=== PATIENT | female | born 1970 | race Caucasian/White ===

== ENCOUNTER 2016-09-14 21:27 | Emergency (ER) | payer BC ==
[~2016-09-14] VITALS: Ht 167.6 cm; Wt 90.7 kg
[~2016-09-14 21:27] MED LIST: ALBU17AE3 IH; ALBU8.5H4 IH; BACL20TA PO; BENZ100C8 PO; BUDE10.2 IH; CODE118S2 PO; CYCL10TA9 PO; DOXY100C2 PO; DULO30CA48 PO; DULO60CA58 PO; DULOXETINE HCL; FLUT1DIS28 IH; GUAI118L76 PO; HYDR25CA5 PO; MELO-195 PO; MELO15TA14 PO; METH4TAB PO; MNTL10T PO; ONDA-42 SL; ONDAN4ODT PO; PRD20T PO; RT-ALBUINH IH; SULF1TAB38 PO; TOPI100T PO; TOPI100T11 PO; TRAM50TA2 PO; TRM50T PO
[2016-09-14] MEDS ORDERED: GABA-486 PO (21:49)
[2016-09-14] MEDS ORDERED: NORT10CA PO (21:49)
[2016-09-14] MEDS ORDERED: MUPI15CR TP (22:07)
[2016-09-14] MEDS ORDERED: SULF1TAB35 PO (22:07)
--- NOTE | 2016-09-14 22:07 | ED Integumentary General ---
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 Pt reports L breast was tender to touch earlier today but pt did not notice drainage or wound at that time. History of Present Illness Time seen by provider: 22:04 Initial Comments Painful swelling left breast for the past several hours. It is been draining yellow fluid tonight. It is tender to touch. She denies fevers. Allergies and Home Medications Allergies Coded Allergies: morphine (Verified Allergy, Mild, 02/25/15) Home Medications Gabapentin 100 Mg Capsule, Unknown Dose PO, (Reported) Meloxicam 15 Mg Tablet, 15 MG PO DAILY, (Reported) Nortriptyline HCl 10 Mg Capsule, Unknown Dose PO, (Reported) Constitutional: No fever EENTM: no symptoms reported Respiratory: no symptoms reported Cardiovascular: no symptoms reported Skin: see HPI All Other Systems Reviewed Negative Unless Noted: Yes Past Ssttvxp-Jlypad-Atzqyw Hx Patient Social History Alcohol Use: Denies Use Recreational Drug Use: No Smoking Status: Never a Smoker Former Smoker/When Quit: Apr 20, 1987 Recent Foreign Travel: No Contact w/Someone Who Travel: No Recent Infectious Disease Expo: No Recent Hopitalizations: No Immunizations Up To Date Tetanus Booster (TDap): Unknown Seasonal Allergies Seasonal Allergies: No Surgeries HX Surgeries: Yes (RIGHT LEG ORTHO SURGERY CHILD) Surgeries: Gallbladder, Hysterectomy, Orthopedic Respiratory Hx Respiratory Disorders: Yes Respiratory Disorders: Asthma Cardiovascular Hx Cardiac Disorders: Yes ("PULLED HEART MUSCLE" PER PT ) Neurological Hx Neurological Disorders: Yes (PSEUDOSEIZURES) Reproductive System Hx Reproductive Disorders: No 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, 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 Genitourinary Hx Genitourinary Disorders: No Gastrointestinal Hx Gastrointestinal Disorders: No Musculoskeletal Hx Musculoskeletal Disorders: Yes (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) Musculoskeletal Disorders: Fibromyalgia Endocrine Hx Endocrine Disorders: No (hypoglycemia) HEENT HX ENT Disorders: No Cancer Hx Cancer: No Psychosocial Hx Psychiatric Problems: Yes Behavioral Health Disorders: Anxiety Integumentary HX Skin/Integumentary Disorder: No Blood Transfusions Hx Blood Disorders: No Reviewed Nursing Assessment Reviewed/Agree w Nursing PMH: Yes Family Medical History Significant Family History: No Pertinent Family Hx Family Medial History: Alcoholism 19 FATHER Asthma G8 BROTHER Myocardial infarction (MATERNAL GRANDFATHER [place]) Physical Exam Vital Signs Vital Sign - Last 12Hours 09/14/16 21:36 Temp 96.1 Pulse 98 Resp 18 B/P (MAP) 128/84 Pulse Ox 95 O2 Delivery Room Air Capillary Refill : Less Than 3 Seconds General Appearance: WD/WN, no apparent distress Neck: supple Cardiovascular: regular rate, rhythm Respiratory: normal breath sounds Gastrointestinal: soft Extremities: normal inspection Neurologic/Psychiatric: alert, normal mood/affect Skin: other (tender red sore dollar size area of induration on her left breast. It is draining yellow pus. There is no fluctuance.) Progress/Results/Core Measures Results/Orders Vital Signs/I&O Vital Sign - Last 12Hours 09/14/16 21:36 Temp 96.1 Pulse 98 Resp 18 B/P (MAP) 128/84 Pulse Ox 95 O2 Delivery Room Air Blood Pressure Mean: 99 Departure Impression Impression: Primary Impression: Cellulitis of left breast Disposition: 01 HOME, SELF-CARE Condition: Stable Departure-Patient Inst. Decision time for Depature: 22:06 Referrals: SHANE ALLEN DO (PCP/Family) Primary Care Physician Patient Instructions: Cellulitis (Skin Infection), Adult (DC) Scripts Mupirocin Calcium (Bactroban) 15 Gm Cream..g. 15 GM TP BID, #1 TUBE Prov: NATE MEJÍA MD 09/14/16 Sulfamethoxazole/Trimethoprim (Bactrim Ds Tablet) 1 Each Tablet 1 EACH PO BID, #20 TAB Prov: NATE MEJÍA MD 09/14/16 NATE MEJÍA MD September 14, 2016 22:07
[2016-09-14 22:15] VITALS: BP 128/84
[2016-09-14] MEDS ORDERED: TRIM/SULFAMETH 160/800 (SEPTRA DS) TAB PO ONE (22:15)
== END 2016-09-14 22:15 | disposition home or self-care (01) ==
LOC: EDUNIT# 21:27 → ER 21:30
DX: N61.0 Mastitis without abscess (principal)
CPT/HCPCS: 99281

== ENCOUNTER 2017-03-03 05:41 | Outpatient (CLI) | payer BC ==
[~2017-03-03] VITALS: Ht 167.6 cm; Wt 90.7 kg
[~2017-03-03 05:41] MED LIST changes: +GABA-486 PO; +MUPI15CR TP; +NORT10CA PO; +SULF1TAB35 PO
[2017-03-03] MEDS ORDERED: MELO15TA39 PO (14:01)
[2017-03-03] MEDS ORDERED: CHOL10007 PO (14:01)
[2017-03-04] MEDS ORDERED: PANT40TA2 PO (14:01)
== END 2017-03-03 14:05 ==
LOC: PREOP 05:41
PROVIDERS: ATTEND Surgery
DX: Z01.818 Encounter for other preprocedural examination (principal); R13.10 Dysphagia, unspecified

== ENCOUNTER 2017-03-04 11:35 | Day surgery (SDC) | payer BC ==
[~2017-03-04 11:35] MED LIST changes: +CHOL10007 PO; +MELO15TA39 PO
[2017-03-04 11:40] VITALS: BP 138/88
[2017-03-04] MEDS ORDERED: HURRICAINE EXT TUBE (BENZOCAINE) XX PRN (11:45)
[2017-03-04] MEDS ORDERED: NS IV 500 ML 500 ML IV PRN (11:45)
--- NOTE | 2017-03-04 12:05 | Progress Note-Pre Operative ---
Pre-Operative Progress Note H&P Reviewed The H&P was reviewed, patient examined and no changes noted. Date Seen by Provider: Mar 04, 2017 Time Seen by Provider: 12:00 Date H&P Reviewed: Mar 04, 2017 Time H&P Reviewed: 12:00 Pre-Operative Diagnosis: GERD, dysphagia TC PEREZ MD Mar 04, 2017 12:05 pm
--- NOTE | 2017-03-04 12:05 | Conscious Sedation/ASA ---
Conscious Sedation Pre-Proced Time Reviewed: 12:00 ASA Class: 2 Airway Mallampati Classification: ([place] appropriate class) I. II. III, IV Lungs Heart ASA score ASA 1: a normal healthy patient ASA 2: a patient with a mild systemic disease (mid diabetes, controlled hypertension, obesity ASA 3: a patient with a severe systemic disease that limits activity (angina , COPD, prior Myocardial infarction) ASA 4: a patient with an incapacitating disease that is a constant threat to life (CHF, renal failure) ASA 5: a moribund patient not expected to survive 24 hrs. (ruptured aneurysm) ASA 6: a declared brain patient whose organs are being harvested. For emergent operations, add the letter E after the classification Grade 2 Sedation Plan: Analgesia, Amnesia, Plan communicated to team members, Discussed options with patient/fam, Discussed risks with patient/fam Note The patient is an appropriate candidate to undergo the planned procedure, sedation, and anesthesia. The patient immediately re-assessed prior to indication. TC PEREZ MD Mar 04, 2017 12:05 pm
[2017-03-04] MEDS ORDERED: ONDANSETRON 4 MG/2 ML (SDV) Z0FRAN IV PRN (12:15)
[2017-03-04] MEDS ORDERED: ACETAMINOPHEN 325 MG TABLET/CAPLET (TYLENOL) PO PRN (12:15)
[2017-03-04] MEDS ORDERED: HYDROcodone/APAP 5 MG/325 MG (LORTAB) TAB PO PRN (12:15)
[2017-03-04] MEDS ORDERED: fentaNYL INJECTION 100 MCG/2 ML AMP IVP PRN (12:15)
--- OUTSIDE RECORDS SUMMARY | 2017-03-04 12:32 | XMS REPORT | Continuity of Care Document ---
Author Author [employer] Organization [facility] Address Unknown Phone Unavailable Care Team Providers Care Crown And Bridge Technician Name Role Phone [employer] Unavailable Unavailable Problems Medications Allergies, Adverse Reactions, Alerts Substance Category Reaction Severity Reaction type Status Date Reported Comments Source morphine drug allergy rash, hives, hallucinations Allergy Active [facility], [place]. Immunizations Results Vital Signs Encounters Location Location Details Encounter Type Encounter Number Reason For Visit Attending Provider ADM Date DC Date Status Source [facility] [id number] Emergency [id number] SVITLANA SHARMA 01/09/201301/09 Active [facility], [place]. Procedures Plan of Care Social History Assessment and Plan Family History Value Date Source Advance Directives Order Name Results Value Date Source
--- OUTSIDE RECORDS SUMMARY | 2017-03-04 12:34 | XMS REPORT | Clinical Summary ---
Author Author [facility] Organization [facility] Address Unknown Phone Unavailable Care Team Providers Care Council Member Name Role Phone PCP Unavailable Source Comments Some departments are not documenting in the electronic medical record. If you do not see the information that you expected, contact Release of Information in the Health Information Management department at [phone] for further assistance in locating additional records.[facility] Allergies Active Allergy Reactions Severity Noted Date Comments Morphine ITCHING, HALLUCINATIONS High 05/16/2015 Current Medications Prescription Sig. Disp. Refills Start End Date Status Date baclofen (LIORESAL) 20 mg Take 20 mg by mouth at Active tablet bedtime daily. topiramate (TOPAMAX) 100 Take 100 mg by mouth. Active mg tablet Half tablet in the AM & 1 tab in the PM sumatriptan (IMITREX) 100 Take 100 mg by mouth as Active mg tablet Needed for Migraine symptoms. IBUPROFEN/DIPHENHYDRAMINE Take 4 Tabs by mouth at Active CIT (IBUPROFEN PM PO) bedtime daily. 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 Social History Tobacco Use Types Packs/Day Years Used Date Former Smoker Cigarettes Alcohol Use Drinks/Week oz/Week Comments No Sex Assigned at Date Recorded Not on file Last Filed Vital Signs Vital Sign Reading Time Taken Blood Pressure 119/84 05/21/2015 12:55 PM AD TRAFFICKER Pulse 78 05/21/2015 12:55 PM AD TRAFFICKER Temperature - - Respiratory Rate - - Oxygen Saturation - - Inhaled Oxygen - - Concentration Weight 94.3 kg (208 lb) 05/21/2015 12:55 PM AD TRAFFICKER Height 167.6 cm (5' 6") 05/21/2015 12:55 PM AD TRAFFICKER Body Mass Index 33.57 05/21/2015 12:55 PM AD TRAFFICKER Plan of Treatment Health Maintenance Due Date Last Done Comments PHYSICAL (COMPREHENSIVE) 07/02/1979 EXAM PERTUSSIS VACCINE 07/02/1983 TETANUS VACCINE 1989 CERVICAL CANCER SCREENING 2002 BREAST CANCER SCREENING 2012 INFLUENZA VACCINE 11/18/2016 Results Not on filefrom Last 3 Months
[2017-03-04] MEDS ORDERED: MIDAZOLAM 2 MG/2 ML (VERSED) VIAL ONE ×3 (13:02→13:03)
[2017-03-04] MEDS ORDERED: fentaNYL INJECTION 100 MCG/2 ML AMP ONE (13:03)
[2017-03-04] MEDS ORDERED: HURRICAINE EXT TUBE (BENZOCAINE) ONE (13:03)
[2017-03-04] MEDS ORDERED: LIDOCAINE JELLY 2% (XYLOCAINE) 5 ML TUBE ONE (13:03)
[2017-03-04] MEDS: fentaNYL INJECTION 100 MCG/2 ML AMP IVP PRN ×2 (13:20→13:33)
[2017-03-04] MEDS: MIDAZOLAM 2 MG/2 ML (VERSED) VIAL IVP PRN ×3 (13:25→13:35)
[2017-03-04] MEDS ORDERED: LIDOCAINE JELLY 2% (XYLOCAINE) 5 ML TUBE TOP ONE (14:00)
--- NOTE | 2017-03-04 14:00 | Progress Note-Post Operative ---
Post-Operative Progess Note Surgeon (s)/Sausage Wrapper (s) Surgeon TC PEREZ MD Sausage Wrapper: none Pre-Operative Diagnosis GERD, dysphagia Post-Operative Diagnosis reflux esophagitis(class C), mild distal esophageal stricture, no HH, mild-mod gastritis. Procedure & Operative Findings Date of Procedure 03/04/17 Procedure Performed/Findings EGD with bx and dilatation. Anesthesia Type CS Estimated Blood Loss Estimated blood loss (mL): minimal Specimens/Packing Specimens Removed GE jxn, antrum TC PEREZ MD Mar 04, 2017 2:00 pm
[2017-03-04] MEDS ORDERED: PANT40TA2 PO (14:01)
--- NOTE | 2017-03-04 14:02 | Discharge Inst-Surgical ---
D/C Lap Instructions-KIDO New, Converted, or Re-Newed RX: RX on Chart Follow Up Appt in 6 weeks Activity as tolerated High Fiber Diet 25g or more per day Avoid Alcohol, Caffeine, Spicy [place] and Acid foods. Drink 64 fluid oz or more of fluids per day. Symptoms to Report: Fever over 101 degree F, Nausea/Vomiting If any problems/questions: Contact your physician or go to Emergency Room TC PEREZ MD Mar 04, 2017 2:02 pm
[2017-03-04 14:05] VITALS: BP 141/88
[2017-03-04 14:45] VITALS: BP 127/85
[2017-03-04 14:54] VITALS: BP 127/85
--- NOTE | 2017-03-04 17:57 | OPERATIVE REPORT ---
DATE OF SERVICE: 03/04/2017 ATTENDING PRIMARY CARE PHYSICIAN: Annie Mott DO PREOPERATIVE DIAGNOSIS: Dysphagia, gastroesophageal reflux disease. POSTOPERATIVE DIAGNOSIS: Severe reflux esophagitis class C with mild distal esophageal stricture. No significant sized hiatal hernia, mild gastritis. PROCEDURE: EGD with biopsy and dilatation. SURGEON: Zeny Venegas MD ANESTHESIA: Conscious sedation. ESTIMATED BLOOD LOSS: Minimal. FINDINGS: Severe reflux esophagitis class C, mild distal esophageal stricture. No significant hiatal hernia, mild to moderate gastritis with no formal ulcers, polyps or any neoplasms. Pylorus and duodenum appeared normal with no distal obstructions. DISPOSITION: The patient tolerated the procedure well. INDICATIONS: The patient is a 46-year-old female, who has had a longstanding history of gastroesophageal reflux disease; however, this has progressed to dysphagia including substernal and chest tightness as well as regurgitation. She has been taking over the counter antacids. However, her symptoms have worsened. She does take Meloxicam for fibromyalgia. DESCRIPTION OF PROCEDURE: The patient was brought to the endoscopy suite, laid in the left lateral decubitus position. After adequate IV pain and sedating medications and conscious sedation anesthesia, the mouthpiece was applied. Endoscope was placed in the mouth, visualizing the pharynx and hypopharyngeal region. Vocal cords, epiglottis and vallecula identified and appeared to be normal. The endoscope was then gently intubated in the esophageal opening, esophagus insufflated. The endoscope was then advanced to the first, second and third portions of the esophagus. At the level of the GE junction, a reflux esophagitis which was severe, was noted. This was [place] class C. Superficial erosions were also identified. A biopsy was taken with forceps with visualization of good hemostasis. There was also a slight narrowing consistent with an early stricture. The endoscope was advanced through the stomach and the endoscope retroflexed. There was no significant sized hiatal hernia identified. There was a mild to moderate gastritis noted. There were no formal ulcers, polyps or any neoplasms identified. A biopsy was taken of the stomach antrum with forceps with visualization of good hemostasis. The endoscope was then advanced to the pylorus into the first and second portions of the duodenum, which appeared normal. There were no distal obstructions. The endoscope was slowly withdrawn. It was then decided to proceed with an esophageal dilatation. A CRE fixed guidewire balloon was then placed into the stomach and pulled back to the area of the stricture. The balloon was then insufflated at 3 atmosphere of pressure with no resistance. We then proceeded to 4.5 atmospheres of pressure or 19 mm in circumference with mild resistance. We then proceeded to 6 atmospheres of pressure or 20 mm in circumference with mild to moderate resistance. The patient did show discomfort also consistent with a successful dilatation of the stricture. This was left in place for approximately 60 seconds. The balloon was then desufflated and removed. No mucosal tears or any bleeding identified. The endoscope was then slowly withdrawn taking a second look and suctioning of residual air with no additional findings. The patient tolerated the procedure well. We will have her continue with the necessary lifestyle changes as well as medical management including small and more frequent meals, avoidance of eating at night as well as head elevation while laying supine. She also needs to avoid caffeinated beverages, spicy, greasy and acidic foods. Proper diet and exercise as well as weight loss are also recommended. We will also await the biopsy results for potential H. pylori as well as Arias's esophagus. We will start her on Protonix 40 mg daily. Job ID: [id number] DocumentID: [id number] Dictated Date: 03/04/2017 13:57:07 Entry Specialist Date: 03/04/2017 17:56:49 Dictated By: MD MARY GENAO
== END 2017-03-04 15:02 | disposition home or self-care (01) ==
LOC: ENDO 11:35
PROVIDERS: ATTEND Surgery
DX: K21.0 Gastro-esophageal reflux disease with esophagitis (principal); K22.2 Esophageal obstruction; K29.60 Other gastritis without bleeding; G40.909 Epilepsy, unspecified, not intractable, without status epilepticus; M79.7 Fibromyalgia; Z79.899 Other long term (current) drug therapy

== ENCOUNTER 2017-11-29 23:25 | Emergency (ER) | payer BC ==
[~2017-11-29] VITALS: Ht 167.6 cm; Wt 90.7 kg
[~2017-11-29 23:25] MED LIST changes: +CODE118S4 PO; +PANT40TA2 PO
--- OUTSIDE RECORDS SUMMARY | 2017-11-29 23:32 | XMS REPORT | Clinical Summary ---
Author Author [facility] Organization [facility] Address Unknown Phone Unavailable Care Team Providers Care Rotoprinter Name Role Phone Catalina Odom MD Unavailable Annie Mott MD PCP Arnaud Coronel MD Unavailable Source Comments Some departments are not documenting in the electronic medical record. If you do not see the information that you expected, contact Release of Information in the Health Information Management department at [phone] for further assistance in locating additional records.[facility] Allergies Active Allergy Reactions Severity Noted Date Comments Morphine ITCHING, HALLUCINATIONS High 05/16/2015 Current Medications Prescription Sig. Disp. Refills Start End Date Status Date gabapentin (NEURONTIN) TAKE 1 CAPSULES BY MOUTH 1 01/01/20 Active 100 mg capsule AT BEDTIME 17 meloxicam (MOBIC) 15 mg TAKE 1 TABLET BY MOUTH 3 03/07/20 Active tablet EVERY DAY 17 nortriptyline (PAMELOR) TAKE ONE CAPSULE BY MOUTH 1 02/07/20 Active 10 mg capsule DAILY AT BEDTIME [address] Take 40 mg by mouth 03/04/20 Active (PROTONIX) 40 mg tablet daily. 17 Cholecalciferol (Vitamin Take by mouth daily. Active D3) (VITAMIN D) 1,000 unit cap IBUPROFEN PO Take by mouth as Needed. 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 Family History Medical History Relation Name Comments Heart Attack Maternal Grandfather Cancer Maternal ovarian Grandmother Unknown to Patient Mother Dementia Neg Hx Migraines Neg Hx Seizures Neg Hx Stroke Neg Hx Relation Name Status Comments Maternal Grandfather Maternal Grandmother Mother Social History Tobacco Use Types Packs/Day Years Used Date Former Smoker Cigarettes Smokeless Tobacco: Never Used Alcohol Use Drinks/Week oz/Week Comments No Sex Assigned at Date Recorded Not on file Last Filed Vital Signs Vital Sign Reading Time Taken Blood Pressure 139/81 04/08/2017 12:10 PM CRYSTALIZER TENDER Pulse 95 04/08/2017 12:10 PM CRYSTALIZER TENDER Temperature - - Respiratory Rate - - Oxygen Saturation 100% 04/08/2017 12:10 PM CRYSTALIZER TENDER Inhaled Oxygen - - Concentration Weight 96.3 kg (212 lb 3.2 oz) 04/08/2017 12:10 PM CRYSTALIZER TENDER Height 167.6 cm (5' 6") 04/08/2017 12:10 PM CRYSTALIZER TENDER Body Mass Index 34.25 04/08/2017 12:10 PM CRYSTALIZER TENDER Plan of Treatment Health Maintenance Due Date Last Done Comments PHYSICAL (COMPREHENSIVE) 07/02/1979 EXAM PERTUSSIS VACCINE 07/02/1983 HIV SCREENING 07/02/1987 TETANUS VACCINE 1989 CERVICAL CANCER SCREENING 2002 BREAST CANCER SCREENING 2012 INFLUENZA VACCINE 01/18/2018 Results Not on filefrom Last 3 Months
--- OUTSIDE RECORDS SUMMARY | 2017-11-29 23:34 | XMS REPORT | Continuity of Care Document ---
Author Author [facility] Organization [facility] Address Unknown Phone Unavailable Allergies Active Description Code Type Severity Reaction Onset Reported/Identified Relationship to Patient Clinical Status Yes morphine [id number] Drug Allergy Mild N/A 02/25/2015 Medications There is no data. Problems Date Dx Coded Attending Type Code Diagnosis Diagnosed By 07/21/2010 Ot 682.4 CELLULITIS OF HAND 07/21/2010 Ot 914.1 ABRASION HAND -INFECTED 07/21/2010 Ot E000.8 OTHER EXTERNAL CAUSE STATUS 07/21/2010 Ot E849.0 ACCIDENT IN HOME 07/21/2010 Ot E920.8 ACC-CUTTING INSTRUM NEC 07/21/2010 Ot V06.1 DIPHTHERIA- TETANUS-PERTUSSIS, COMBINED [ 10/25/2010 Ot 493.90 ASTHMA, UNSPECIFIED 10/25/2010 Ot 786.05 SHORTNESS OF BREATH 05/25/2011 Ot 465.9 ACUTE URI NOS 05/25/2011 Ot 490 BRONCHITIS NOS 05/25/2011 Ot 786.2 COUGH 06/02/2012 Ot 493.92 ASTHMA, UNSPECIFIED, W (ACUTE) EXACERBAT 06/02/2012 Ot 786.05 SHORTNESS OF BREATH 06/03/2012 Ot 300.00 ANXIETY STATE NOS 06/03/2012 Ot 780.96 GENERALIZED PAIN 06/03/2012 Ot 784.0 HEADACHE 07/28/2012 Ot 845.10 SPRAIN OF FOOT NOS 07/28/2012 Ot 959.7 LOWER LEG INJURY NOS 07/28/2012 Ot E000.8 OTHER EXTERNAL CAUSE STATUS 07/28/2012 Ot E849.0 ACCIDENT IN HOME 07/28/2012 Ot E880.9 FALL ON STAIR/STEP NEC 09/13/2012 NATE MEJÍA MD Ot 519.11 ACUTE BRONCHOSPASM 09/13/2012 NATE MEJÍA MD Ot 786.09 RESPIRATORY ABNORM NEC 08/16/2013 PASTOR GONZALES MD Ot 490 BRONCHITIS NOS 08/16/2013 PASTOR GONZALES MD Ot 786.05 SHORTNESS OF BREATH 08/16/2013 PASTOR GONZALES MD Ot 786.59 CHEST PAIN NEC 02/07/2014 PASTOR GONZALES MD Ot 300.00 ANXIETY STATE NOS 02/07/2014 PASTOR GONZALES MD Ot 493.92 ASTHMA, UNSPECIFIED, W (ACUTE) EXACERBAT 02/07/2014 PASTOR GONZALES MD Ot 786.50 CHEST PAIN NOS 02/07/2014 PASTOR GONZALES MD Ot 786.52 PAINFUL RESPIRATION 10/07/2014 NIURKA ALLEN DOQUELINE S Ot 300.01 PANIC DISORDER WITHOUT AGORAPHOBIA 10/07/2014 NIURKA ALLEN DOQUELINE S Ot 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 10/07/2014 TIFFANY TOLENTINO SHANE S Ot 780.97 ALTERED MENTAL STATUS 10/07/2014 NIURKA ALLEN DOQUELINE S Ot 784.0 HEADACHE 10/07/2014 NIURKA ALLEN DOQUELINE S Ot 786.52 PAINFUL RESPIRATION 02/26/2015 NIURKA ALLEN DOQUELINE S Ot F41.9 ANXIETY DISORDER, UNSPECIFIED 02/26/2015 TIFFANY TOLENTINO, SHANE S Ot 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 AND CONVERSION DISORDER, UN 02/26/2015 MITA ALLEN DOLINE S Ot G43.909 MIGRAINE, UNSP, NOT INTRACTABLE, WITHOUT 02/26/2015 NIURKA ALLEN DOQUELINE S Ot G44.209 TENSION-TYPE HEADACHE, UNSPECIFIED, NOT 02/26/2015 MITA ALLEN DOLINE S Ot R56.9 UNSPECIFIED CONVULSIONS 03/25/2015 GAVIN BISWAS DO Ot R51 HEADACHE 03/25/2015 GAVIN BISWAS DO Ot Z91.14 PATIENT'S OTHER NONCOMPLIANCE WITH MEDIC 03/28/2015 MITA ALLEN DOLINE S Ot R41.3 03/28/2015 NIURKA ALLEN DOQUELINE S Ot R52 03/28/2015 MITA ALLEN DOLINE S Ot R55 04/05/2015 MITA ALLEN DOLINE S Ot R41.3 04/05/2015 NIURKA ALLEN DOQUELINE S Ot R51 04/05/2015 ORENDER DO, SHANE S Ot R55 04/24/2015 ORENDER DO, SHANE S Ot R41.3 04/24/2015 ORENDER DO, SHANE S Ot R52 04/24/2015 ORENDER DO, SHANE S Ot R55 04/24/2015 ORENDER DO, SHANE S Ot R41.3 04/24/2015 ORENDER DO, SHANE S Ot R51 04/24/2015 ORENDER DO, SHANE S Ot R55 08/08/2015 ORENDER DO, SHANE S Ot F19.90 OTHER PSYCHOACTIVE SUBSTANCE USE, UNSPEC 08/08/2015 ORENDER DO, SHANE S Ot F19.90 OTHER PSYCHOACTIVE SUBSTANCE USE, UNSPEC 08/22/2015 ORENDER DO, SHANE S Ot F19.90 OTHER PSYCHOACTIVE SUBSTANCE USE, UNSPEC 09/11/2015 ORENDER DO, SHANE S Ot R41.3 OTHER AMNESIA 09/11/2015 ORENDER DO, SHANE S Ot R52 PAIN, UNSPECIFIED 09/11/2015 ORENDER DO, SHANE S Ot R55 SYNCOPE AND COLLAPSE 09/11/2015 ORENDER DO, SHANE S Ot R41.3 OTHER AMNESIA 09/11/2015 ORENDER DO, SHANE S Ot R51 HEADACHE 09/11/2015 ORENDER DO, SHANE S Ot R55 SYNCOPE AND COLLAPSE 09/11/2015 ORENDER DO, SHANE S Ot F19.90 OTHER PSYCHOACTIVE SUBSTANCE USE, UNSPEC 09/11/2015 TRINITY VALLECILLO MD Ot K22.9 DISEASE OF ESOPHAGUS, UNSPECIFIED 09/11/2015 TRINITY VALLECILLO MD Ot K76.0 FATTY (CHANGE OF) LIVER, NOT ELSEWHERE C 09/11/2015 TRINITY VALLECILLO MD Ot R10.31 RIGHT LOWER QUADRANT PAIN 09/11/2015 TRINITY VALLECILLO MD Ot R11.2 NAUSEA WITH VOMITING, UNSPECIFIED 09/12/2015 TRINITY VALLECILLO MD Ot K22.9 DISEASE OF ESOPHAGUS, UNSPECIFIED 09/12/2015 TRINITY VALLECILLO MD Ot K76.0 FATTY (CHANGE OF) LIVER, NOT ELSEWHERE C 09/12/2015 TRINITY VALLECILLO MD Ot R10.31 RIGHT LOWER QUADRANT PAIN 09/12/2015 TRINITY VALLECILLO MD Ot R11.2 NAUSEA WITH VOMITING, UNSPECIFIED 10/10/2015 Ot 729.5 PAIN IN LIMB 10/11/2015 ORENDER DO, SHANE S Ot R41.3 OTHER AMNESIA 10/11/2015 ORENDER DO, SHANE S Ot R52 PAIN, UNSPECIFIED 10/11/2015 ORENDER DO, SHANE S Ot R55 SYNCOPE AND COLLAPSE 10/11/2015 ORENDER DO, SHANE S Ot R41.3 OTHER AMNESIA 10/11/2015 ORENDER DO, SHANE S Ot R51 HEADACHE 10/11/2015 ORENDER DO, SHANE S Ot R55 SYNCOPE AND COLLAPSE 10/11/2015 ORENDER DO, SHANE S Ot F19.90 OTHER PSYCHOACTIVE SUBSTANCE USE, UNSPEC 11/04/2015 ORENDER DO, SHANE S Ot R41.3 OTHER AMNESIA 11/04/2015 ORENDER DO, SHANE S Ot R52 PAIN, UNSPECIFIED 11/04/2015 ORENDER DO, SHANE S Ot R55 SYNCOPE AND COLLAPSE 11/04/2015 ORENDER DO, SHANE S Ot R41.3 OTHER AMNESIA 11/04/2015 ORENDER DO, SHANE S Ot R51 HEADACHE 11/04/2015 ORENDER DO, SHANE S Ot R55 SYNCOPE AND COLLAPSE 11/04/2015 ORENDER DO, SHANE S Ot F19.90 OTHER PSYCHOACTIVE SUBSTANCE USE, UNSPEC 04/16/2016 TRINITY VALLECILLO MD Ot F41.9 ANXIETY DISORDER, UNSPECIFIED 04/16/2016 TRINITY VALLECILLO MD Ot 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 04/16/2016 TRINITY VALLECILLO MD Ot J20.9 ACUTE BRONCHITIS, UNSPECIFIED 04/16/2016 TRINITY VALLECILLO MD Ot R05 COUGH 04/17/2016 TRINITY VALLECILLO MD Ot F41.9 ANXIETY DISORDER, UNSPECIFIED 04/17/2016 TRINITY VALLECILLO MD Ot 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 04/17/2016 TRINITY VALLECILLO MD Ot J20.9 ACUTE BRONCHITIS, UNSPECIFIED 04/17/2016 TRINITY VALLECILLO MD Ot R05 COUGH 04/19/2016 TRINITY VALLECILLO MD Ot F41.9 ANXIETY DISORDER, UNSPECIFIED 04/19/2016 TRINITY VALLECILLO MD Ot 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 04/19/2016 TRINITY VALLECILLO MD Ot J20.9 ACUTE BRONCHITIS, UNSPECIFIED 04/19/2016 TRINITY VALLECILLO MD Ot R05 COUGH 04/22/2016 TRINITY VALLECILLO MD Ot F41.9 ANXIETY DISORDER, UNSPECIFIED 04/22/2016 TRINITY VALLECILLO MD Ot 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 04/22/2016 TRINITY VALLECILLO MD Ot J20.9 ACUTE BRONCHITIS, UNSPECIFIED 04/22/2016 TRINITY VALLECILLO MD Ot R05 COUGH 09/14/2016 ORENDER DO, SHANE S Ot R41.3 OTHER AMNESIA 09/14/2016 ORENDER DO, SHANE S Ot R52 PAIN, UNSPECIFIED 09/14/2016 ORENDER DO, SHANE S Ot R55 SYNCOPE AND COLLAPSE 09/14/2016 ORENDER DO, SHANE S Ot R41.3 OTHER AMNESIA 09/14/2016 ORENDER DO, SHANE S Ot R51 HEADACHE 09/14/2016 ORENDER DO, SHANE S Ot R55 SYNCOPE AND COLLAPSE 09/14/2016 ORENDER DO, SHANE S Ot F19.90 OTHER PSYCHOACTIVE SUBSTANCE USE, UNSPEC 09/14/2016 NATE MEJÍA MD Ot N61.0 MASTITIS WITHOUT ABSCESS 09/14/2016 NATE MEJÍA MD Ot S20.162A INSECT BITE (NONVENOMOUS) OF BREAST, LEF 03/04/2017 TC PEREZ MD Ot G40.909 EPILEPSY, UNSP, NOT INTRACTABLE, WITHOUT 03/04/2017 TC PEREZ MD Ot K21.0 GASTRO-ESOPHAGEAL REFLUX DISEASE WITH ES 03/04/2017 TC PEREZ MD Ot K22.2 ESOPHAGEAL OBSTRUCTION 03/04/2017 TC PEREZ MD Ot K29.60 OTHER GASTRITIS WITHOUT BLEEDING 03/04/2017 TC PEREZ MD Ot M79.7 FIBROMYALGIA 03/04/2017 TC PEREZ MD, Ot Z79.899 OTHER LONG-TERM (CURRENT) DRUG THERAPY 03/05/2017 TC PEREZ MD, Ot G40.909 EPILEPSY, UNSP, NOT INTRACTABLE, WITHOUT 03/05/2017 TC PEREZ MD Ot K21.0 GASTRO-ESOPHAGEAL REFLUX DISEASE WITH ES 03/05/2017 TC PEREZ MD, Ot K22.2 ESOPHAGEAL OBSTRUCTION 03/05/2017 TC PEREZ MD, Ot K29.60 OTHER GASTRITIS WITHOUT BLEEDING 03/05/2017 TC PEREZ MD, Ot M79.7 FIBROMYALGIA 03/05/2017 TC PEREZ MD, Ot Z79.899 OTHER LONG-TERM (CURRENT) DRUG THERAPY 03/09/2017 TC PEREZ MD, Ot R13.10 DYSPHAGIA, UNSPECIFIED 03/09/2017 TC PEREZ MD, Ot Z01.818 ENCOUNTER FOR OTHER PREPROCEDURAL EXAMIN 03/10/2017 TC PEREZ MD, Ot G40.909 EPILEPSY, UNSP, NOT INTRACTABLE, WITHOUT 03/10/2017 TC PEREZ MD, Ot K21.0 GASTRO-ESOPHAGEAL REFLUX DISEASE WITH ES 03/10/2017 TC PEREZ MD, Ot K22.2 ESOPHAGEAL OBSTRUCTION 03/10/2017 TC PEREZ MD, Ot K29.60 OTHER GASTRITIS WITHOUT BLEEDING 03/10/2017 TC PEREZ MD Ot M79.7 FIBROMYALGIA 03/10/2017 TC PEREZ MD, Ot Z79.899 OTHER LONG-TERM (CURRENT) DRUG THERAPY 03/16/2017 SHANE ALLEN DO Ot G93.0 CEREBRAL CYSTS 03/18/2017 TC PEREZ MD Ot G40.909 EPILEPSY, UNSP, NOT INTRACTABLE, WITHOUT 03/18/2017 TC PEREZ MD Ot K21.0 GASTRO-ESOPHAGEAL REFLUX DISEASE WITH ES 03/18/2017 TC PEREZ MD, Ot K22.2 ESOPHAGEAL OBSTRUCTION 03/18/2017 TC PEREZ MD Ot K29.60 OTHER GASTRITIS WITHOUT BLEEDING 03/18/2017 TC PEREZ MD Ot M79.7 FIBROMYALGIA 03/18/2017 TC PEREZ MD, Ot Z79.899 OTHER LONG-TERM (CURRENT) DRUG THERAPY Procedures There is no data. Results Test Result Range Complete blood count (CBC) with automated white blood cell (WBC) differential - 04/16/16 11:09 Blood leukocytes automated count (number/volume) 9.3 10*3/uL 4.3-11.0 Blood erythrocytes automated count (number/volume) 4.65 10*6/uL 4.35-5.85 Venous blood hemoglobin measurement (mass/volume) 13.8 g/dL 11.5-16.0 Blood hematocrit (volume fraction) 40 % 35-52 Automated erythrocyte mean corpuscular volume 86 [foz_us] 80-99 Automated erythrocyte mean corpuscular hemoglobin (mass per erythrocyte) 30 pg 25-34 Automated erythrocyte mean corpuscular hemoglobin concentration measurement ( mass/volume) 34 g/dL 32-36 Automated erythrocyte distribution width ratio 12.8 % 10.0-14.5 Automated blood platelet count (count/volume) 328 10*3/uL 130-400 Automated blood platelet mean volume measurement 9.1 [foz_us] 7.4-10.4 Automated blood neutrophils/100 leukocytes 50 % 42-75 Automated blood lymphocytes/100 leukocytes 34 % 12-44 Blood monocytes/100 leukocytes 6 % 0-12 Automated blood eosinophils/100 leukocytes 9 % 0-10 Automated blood basophils/100 leukocytes 1 % 0-10 Blood neutrophils automated count (number/volume) 4.6 10*3 1.8-7.8 Blood lymphocytes automated count (number/volume) 3.2 10*3 1.0-4.0 Blood monocytes automated count (number/volume) 0.6 10*3 0.0-1.0 Automated eosinophil count 0.9 10*3/uL 0.0-0.3 Automated blood basophil count (count/volume) 0.1 10*3/uL 0.0-0.1 PT panel in platelet poor plasma by coagulation assay - 04/16/16 11:09 Prothrombin time (PT) in platelet poor plasma by coagulation assay 13.7 s 12.2-14.7 INR in platelet poor plasma or blood by coagulation assay 1.1 0.8-1.4 Activated partial thromboplastin time (aPTT) in platelet poor plasma bycoagulation assay - 04/16/16 11:09 Activated partial thromboplastin time (aPTT) in platelet poor plasma bycoagulation assay 35 s 24-35 Fibrin D-dimer FEU measurement in platelet poor plasma (mass/volume) - 11:09 Fibrin D-dimer FEU measurement in platelet poor plasma (mass/volume) 0.34 ug/mL 0.00-0.49 Comprehensive metabolic panel - 04/16/16 11:09 Serum or plasma sodium measurement (moles/volume) 135 mmol/L 135-145 Serum or plasma potassium measurement (moles/volume) 4.1 mmol/L 3.6-5.0 Serum or plasma chloride measurement (moles/volume) 107 mmol/L 98-107 Carbon dioxide 19 mmol/L 21-32 Serum or plasma anion gap determination (moles/volume) 9 mmol/L 5-14 Serum or plasma urea nitrogen measurement (mass/volume) 10 mg/dL 7-18 Serum or plasma creatinine measurement (mass/volume) 0.70 mg/dL 0.60-1.30 Serum or plasma urea nitrogen/creatinine mass ratio 14 NRG Serum or plasma creatinine measurement with calculation of estimated glomerular filtration rate > NRG Serum or plasma glucose measurement (mass/volume) 101 mg/dL 70-105 Serum or plasma calcium measurement (mass/volume) 8.6 mg/dL 8.5-10.1 Serum or plasma total bilirubin measurement (mass/volume) 0.4 mg/dL 0.1-1.0 Serum or plasma alkaline phosphatase measurement (enzymatic activity/volume) 86 U/L 40-136 Serum or plasma aspartate aminotransferase measurement (enzymatic activity/ volume) 20 U/L 5-34 Serum or plasma alanine aminotransferase measurement (enzymatic activity/volume ) 20 U/L 0-55 Serum or plasma protein measurement (mass/volume) 6.9 g/dL 6.4-8.2 Serum or plasma albumin measurement (mass/volume) 4.1 g/dL 3.2-4.5 Serum or plasma troponin i.cardiac measurement (mass/volume) - 04/16/16 11:09 Serum or plasma troponin i.cardiac measurement (mass/volume) < ng/ mL <0.30 Capillary blood glucose measurement by glucometer (mass/volume) - 04/16/16 11: 22 Capillary blood glucose measurement by glucometer (mass/volume) 78 mg/dL 70-110 Complete urinalysis with reflex to culture - 04/16/16 12:41 Urine color determination YELLOW NRG Urine clarity determination CLEAR NRG Urine pH measurement by test strip 6 5-9 Specific gravity of urine by test strip 1.015 1.016- 1.022 Urine protein assay by test strip, semi-quantitative NEGATIVE NEGATIVE Urine glucose detection by automated test strip 4+ NEGATIVE Erythrocytes detection in urine sediment by light microscopy 1+ NEGATIVE Urine ketones detection by automated test strip NEGATIVE NEGATIVE Urine nitrite detection by test strip NEGATIVE NEGATIVE Urine total bilirubin detection by test strip NEGATIVE NEGATIVE Urine urobilinogen measurement by automated test strip (mass/volume) NORMAL NORMAL Urine leukocyte esterase detection by dipstick NEGATIVE NEGATIVE Automated urine sediment erythrocyte count by microscopy (number/high power field) [HPF] NRG Automated urine sediment leukocyte count by microscopy (number/high power field ) NONE NRG Bacteria detection in urine sediment by light microscopy TRACE NRG Squamous epithelial cells detection in urine sediment by light microscopy >50 NRG Crystals detection in urine sediment by light microscopy NONE NRG Casts detection in urine sediment by light microscopy NONE NRG Mucus detection in urine sediment by light microscopy NEGATIVE NRG Complete urinalysis with reflex to culture NO NRG Encounters ACCT No. Visit Date/Time Discharge Status Pt. Type Provider Facility Loc./Unit Complaint [id number] 03/04/2017 11:35:00 03/04/2017 15:02:00 DIS Outpatient TC PEREZ MD [facility] ENDO DYSPHAGIA [id number] 03/03/2017 05:41:00 03/03/2017 14:05:00 DIS Outpatient TC PEREZ MD [facility] PREOP DYSPHAGIA [id number] 02/25/2017 10:06:00 02/25/2017 23:59:59 CLS Outpatient SHANE ALLEN DO [facility] RAD G93.0 [id number] 09/14/2016 21:30:00 09/14/2016 22:15:00 DIS Emergency NATE MEJÍA MD [facility] ER POSS SPIDER BITE [id number] 04/16/2016 09:55:00 04/16/2016 13:59:00 DIS Emergency TRINITY VALLECILLO MD [facility] ER COUGH/CHEST CONGESTION [id number] 09/11/2015 20:27:00 09/11/2015 23:56:00 DIS Emergency TRINITY VALLECILLO MD [facility] ER ABD PAIN [id number] 08/02/2015 17:06:00 08/02/2015 23:59:59 CLS Outpatient SHANE ALLEN DO S [facility] LAB TYLENOL OVERUSAGE [id number] 03/24/2015 22:20:00 03/25/2015 00:26:00 DIS Emergency GAVIN BISWAS DO [facility] ER POSSIBLE OVERDOSE [id number] 03/21/2015 15:31:00 03/21/2015 23:59:59 CLS Outpatient SHANE ALLEN DO S [facility] RAD CERVICALGIA [id number] 03/13/2015 16:08:00 03/13/2015 23:59:59 CLS Outpatient MITA ALLEN DOLINE S [facility] RAD CEPHALGIA, NECK PAIN WITH PARETHESIA [id number] 02/25/2015 13:41:00 02/26/2015 18:28:00 DIS Inpatient SHANE ALLEN DO S [facility] 4TH SEIZURE LIKE EPISODE [id number] 10/06/2014 16:27:00 10/07/2014 16:05:00 DIS Inpatient MITA ALLEN DOLINE S [facility] 4TH CONVERSION DISORDER, AMS [id number] 02/07/2014 13:15:00 02/07/2014 15:23:00 DIS Emergency PASTOR GONZALES MD [facility] ER CHEST PAIN [id number] 08/16/2013 00:23:00 08/16/2013 02:14:00 DIS Emergency PASTOR GONZALES MD [facility] ER SOB [id number] 09/13/2012 15:22:00 09/13/2012 16:12:00 DIS Emergency NAET MEJÍA MD [facility] ER [id number] 07/27/2012 23:14:00 Document Registration [id number] 06/03/2012 16:05:00 Document Registration [id number] 06/02/2012 21:46:00 Document Registration [id number] 10/15/2011 16:32:00 Document Registration [id number] 05/25/2011 14:30:00 Document Registration [id number] 10/25/2010 10:39:00 Document Registration [id number] 07/21/2010 03:28:00 Document Registration 06/201710/27/2017 14:37:01 10/27/2017 23:59:59 [facility] Shane Byers
[2017-11-29] MEDS ORDERED: RX-NEO/POLYB/HC OTIC (CORTISPORIN) SUSP 10 ML BTL OT STA (23:52)
[2017-11-30] MEDS ORDERED: BSS 15 ML IR ONE
[2017-11-30] MEDS ORDERED: TETRACAINE 0.5% OPHTH SOLN 4 ML BTL (SINGLE DOSE ONLY) OP ONE
--- NOTE | 2017-11-30 00:23 | ED General ---
General Chief Complaint: Ear Problems Stated Complaint: EAR PAIN IN BOTH EARS-STS POURED PEROXIDE IN EARS Nursing Triage Note: PT PRESENTS TO ER WITH COMPLAINT OF BILATERAL EAR PAIN AFTER POURING PEROXIDE IN BOTH EARS TO CLEAN THE WAX OUT. Nursing Sepsis Screen: No Definite Risk Source of Information: Patient Exam Limitations: No Limitations History of Present Illness Date Seen by Provider: Nov 30, 2017 Time Seen by Provider: 23:48 Initial Comments This 47-year-old woman presents to the emergency room with complaints of severe pain in the ears bilaterally, right greater than left. She was using hydrogen peroxide and Q-tips to clean wax out of her ears earlier this evening. The pain started shortly after. She is in distress due to the pain. She took ibuprofen 400 mg at home. She reports using hydrogen peroxide in the same manner in the past without any difficulty. Allergies and Home Medications Allergies Coded Allergies: morphine (Verified Allergy, Mild, 02/25/15) Home Medications Cholecalciferol (Vitamin D3) 1,000 Unit Capsule, 1,000 UNIT PO DAILY, (Reported) Gabapentin 100 Mg Capsule, 100 MG PO HS, (Reported) Meloxicam 15 Mg Tablet, 15 MG PO DAILY, (Reported) Nortriptyline HCl 10 Mg Capsule, 10 MG PO HS, (Reported) Pantoprazole Sodium 40 Mg Tablet.dr, 40 MG PO DAILY Prescribed by: TC PEREZ on 03/04/17 1401 Patient Home Medication List Home Medication List Reviewed: Yes Review of Systems Constitutional: no symptoms reported EENTM: see HPI Respiratory: no symptoms reported Cardiovascular: no symptoms reported Gastrointestinal: no symptoms reported Skin: no symptoms reported Psychiatric/Neurological: No Symptoms Reported Past Zqykjiq-Smwfav-Toequn Hx Patient Social History Alcohol Use: Denies Use Recreational Drug Use: No Smoking Status: Never a Smoker Recent Foreign Travel: No Contact w/Someone Who Travel: No Recent Infectious Disease Expo: No Recent Hopitalizations: No Immunizations Up To Date Tetanus Booster (TDap): Unknown Seasonal Allergies Seasonal Allergies: No Past Medical History Surgeries: Yes (RIGHT LEG ORTHO SURGERY CHILD, [facility]) Gallbladder, Hysterectomy, Orthopedic Respiratory: Yes Asthma Currently Using CPAP: No Currently Using BIPAP: No Cardiac: No Neurological: Yes (PSEUDOSEIZURES) Seizure Disorder Reproductive Disorders: No 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, 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 Genitourinary: No Gastrointestinal: No Musculoskeletal: Yes (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) Arthritis, Fibromyalgia Endocrine: No (hypoglycemia) HEENT: No Cancer: No Psychosocial: Yes Anxiety Integumentary: No Blood Disorders: No Family Medical History Alcoholism 19 FATHER Asthma G8 BROTHER Myocardial infarction (MATERNAL GRANDFATHER [place]) No Pertinent Family Hx Physical Exam Vital Signs Vital Signs - First Documented 11/29/17 23:41 Temp 97.0 Pulse 88 Resp 20 B/P (MAP) 126/89 (101) Pulse Ox 96 O2 Delivery Room Air Capillary Refill : Less Than 3 Seconds Height, Weight, BMI Height: 5'6.00" Weight: 200lbs. 0.0oz. 90.468185fw; 32.3 BMI Method:Stated General Appearance: WD/WN, Moderate Distress HEENT: Normal ENT Inspection, TM Abnormal (L) (left ear canal demonstrates patches of erythema/inflammation. The tympanic membrane erythematous around the rim but otherwise appears relatively normal. There is no obvious perforation or drainage.), TM Abnormal (R) (the right ear canal is rather inflamed and erythematous. The erythema extends to the superior aspect of the tympanic membrane as well. There is retraction of the membrane. There is no obvious perforation or drainage.) Neck: Normal Inspection Neurologic/Psychiatric: Alert, Oriented x3, No Motor/Sensory Deficits, Normal Mood/Affect, teaching young II-XII Norm as Tested Skin: Normal Color, Warm/Dry Progress/Results/Core Measures Suspected Sepsis Recent Fever Within 48 Hours: No Infection Criteria Present: None New/Unexplained Altered Menta: No Sepsis Screen: No Definite Risk SIRS Temperature:97.0 Pulse: 88 Respiratory Rate: 20 Blood Pressure 126 /89 Mean: 101 Results/Orders My Orders Orders - PASTOR GONZALES MD Tetracaine 0.5% Ophth Mya Sdv (Tetracai (11/30/17 00:00) Balanced Salt Irrigation Soln (Bss Irrig (11/30/17 00:00) Rx-[place]/Poly/Hc Otic Susp (Rx-Cortisporin (11/29/17 23:52) Hydrocodone/Apap 5/325 Tablet (Lortab 5 (11/30/17 01:00) Medications Given in ED Vital Signs/I&O Capillary Refill : Less Than 3 Seconds Blood Pressure Mean: 101 Progress Note : Progress Note Patient appeared to have both traumatic and chemical irritation of the ear canals bilaterally. There was minimal involvement of the tympanic membranes. There is no apparent perforation of tympanic membranes. A bottle of tetracaine was diluted into a bottle of balanced saline. The solution was used to irrigate the ears. Ears were then treated with Cortisporin drops. Patient did have moderate improvement. She was also given a hydrocodone tablet before dismissal. See discharge instructions. Departure Impression Primary Impression: Trauma of ear canal Qualified Codes: S09.91XA - Unspecified injury of ear, initial encounter Disposition: HOME, SELF-CARE Condition: Improved Departure-Patient Inst. Referrals: SHANE ALLEN DO (PCP/Family) Primary Care Physician Patient Instructions: NO INSTRUCTIONS GIVEN Add. Discharge Instructions: Place 4 drops of the antibiotic in each ear 3 times daily for the next several days. For pain he may take ibuprofen up to 600 mg every 6 hours as needed. Add Tylenol (acetaminophen) up to 1000 mg every 6 hours as needed for additional pain relief. Follow-up with your primary care provider tomorrow or within ENT doctor such as Dr. Foley tomorrow if symptoms are not improving. Return to the ER if symptoms are worsening. Use only solution specifically designed for the ear canal for cleansing of your ears in the future. Do not insert Q-tips or any other objects beyond the rim of the ear canal. All discharge instructions reviewed with patient and/or family. Voiced understanding. Copy Copies To 1: SHANE ALLEN JOSHUA T MD Nov 30, 2017 00:23
[2017-11-30] MEDS ORDERED: HYDROcodone/APAP 5 MG/325 MG (LORTAB) TAB PO ONE (01:00)
[2017-11-30 01:15] VITALS: BP 126/89
== END 2017-11-30 01:15 | disposition home or self-care (01) ==
LOC: EDUNIT# 23:25 → ER 23:27
DX: S09.91XA Unspecified injury of ear, initial encounter (principal); J45.909 Unspecified asthma, uncomplicated; G40.909 Epilepsy, unspecified, not intractable, without status epilepticus; F41.9 Anxiety disorder, unspecified; Z98.51 Tubal ligation status; Z88.6 Allergy status to analgesic agent; Z90.710 Acquired absence of both cervix and uterus; X50.0XXA Overexertion from strenuous movement or load, initial encounter
CPT/HCPCS: 99283

== ENCOUNTER 2018-02-10 16:34 | Emergency (ER) | payer BC ==
[~2018-02-10] VITALS: Ht 167.6 cm; Wt 92.5 kg
[~2018-02-10 16:34] MED LIST changes: -PROM25SU43 RC; -TIZA4CAP PO; -TRAM-42 PO
--- OUTSIDE RECORDS SUMMARY | 2018-02-10 16:40 | XMS REPORT | Clinical Summary ---
Author Author [facility] Organization [facility] Address Unknown Phone Unavailable Care Team Providers Care Charging Operator Name Role Phone Catalina Odom MD Unavailable Annie Mott MD PCP Arnaud Coronel MD Unavailable Source Comments Some departments are not documenting in the electronic medical record. If you do not see the information that you expected, contact Release of Information in the Health Information Management department at [phone] for further assistance in locating additional records[facility] Allergies Active Allergy Reactions Severity Noted [...] Taken Blood Pressure 139/81 04/08/2017 12:10 PM PAY AGENT Pulse 95 04/08/2017 12:10 PM PAY AGENT Temperature - - Respiratory Rate - - Oxygen Saturation 100% 04/08/2017 12:10 PM PAY AGENT Inhaled Oxygen - - Concentration Weight 96.3 kg (212 lb 3.2 oz) 04/08/2017 12:10 PM PAY AGENT Height 167.6 cm (5' 6") 04/08/2017 12:10 PM PAY AGENT Body Mass Index 34.25 04/08/2017 12:10 PM PAY AGENT Plan of Treatment Health Maintenance Due Date Last Done Comments PHYSICAL (COMPREHENSIVE) 07/02/1979 EXAM PERTUSSIS VACCINE 07/02/1983 HIV SCREENING 07/02/1987 TETANUS VACCINE 1989 CERVICAL CANCER SCREENING 2002 BREAST CANCER SCREENING 2012 INFLUENZA VACCINE 11/18/2017 Results Not on filefrom Last 3 Months
--- OUTSIDE RECORDS SUMMARY | 2018-02-10 16:42 | XMS REPORT | Continuity of Care Document ---
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 10/07/2014 TIFFANY TOLENTINO SHANE S Ot 780.97 ALTERED MENTAL STATUS 10/07/2014 NIURKA MOTT DOQUELINE S Ot 784.0 HEADACHE 10/07/2014 NIURKA MOTT DOQUELINE S Ot 786.52 PAINFUL RESPIRATION 02/26/2015 NIURKA MOTT DOQUELINE S Ot F41.9 ANXIETY DISORDER, UNSPECIFIED 02/26/2015 TIFFANY TOLENTINO, SHANE S Ot 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 AND CONVERSION DISORDER, UN 02/26/2015 MITA MOTT DOLINE S Ot G43.909 MIGRAINE, UNSP, NOT INTRACTABLE, WITHOUT 02/26/2015 NIURKA MOTT DOQUELINE S Ot G44.209 TENSION-TYPE HEADACHE, UNSPECIFIED, NOT 02/26/2015 MITA MOTT DOLINE S Ot R56.9 UNSPECIFIED CONVULSIONS 03/25/2015 GAVIN BISWAS DO Ot R51 HEADACHE 03/25/2015 GAVIN BISWAS DO Ot Z91.14 PATIENT'S OTHER NONCOMPLIANCE WITH MEDIC 03/28/2015 MITA MOTT DOLINE S Ot R41.3 03/28/2015 NIURKA MOTT DOQUELINE S Ot R52 03/28/2015 MITA MOTT DOLINE S Ot R55 04/05/2015 MITA MOTT DOLINE S Ot R41.3 04/05/2015 NIURKA MOTT DOQUELINE S Ot R51 04/05/2015 ORENDER DO, [...] S20.162A INSECT BITE (NONVENOMOUS) OF BREAST, LEF 03/03/2017 TC PEREZ MD Ot R13.10 DYSPHAGIA, UNSPECIFIED 03/03/2017 TC PEREZ MD Ot Z01.818 ENCOUNTER FOR OTHER PREPROCEDURAL EXAMIN 03/04/2017 TC PEREZ MD Ot G40.909 EPILEPSY, UNSP, NOT INTRACTABLE, WITHOUT 03/04/2017 TC PEREZ MD Ot K21.0 GASTRO-ESOPHAGEAL REFLUX DISEASE WITH ES 03/04/2017 TC PEREZ MD, Ot K22.2 ESOPHAGEAL OBSTRUCTION 03/04/2017 TC PEREZ MD, Ot K29.60 OTHER GASTRITIS WITHOUT BLEEDING 03/04/2017 TC PEREZ MD, Ot M79.7 FIBROMYALGIA 03/04/2017 TC PEREZ MD, Ot Z79.899 OTHER SHAPE CARVER (CURRENT) DRUG THERAPY 03/05/2017 TC PEREZ MD, Ot G40.909 EPILEPSY, UNSP, NOT INTRACTABLE, WITHOUT 03/05/2017 TC PEREZ MD, Ot K21.0 GASTRO-ESOPHAGEAL REFLUX DISEASE WITH ES 03/05/2017 TC PEREZ MD, Ot K22.2 ESOPHAGEAL OBSTRUCTION 03/05/2017 TC PEREZ MD, Ot K29.60 OTHER GASTRITIS WITHOUT BLEEDING 03/05/2017 TC PEREZ MD, Ot M79.7 FIBROMYALGIA 03/05/2017 TC PEREZ MD, Ot Z79.899 OTHER SHAPE CARVER (CURRENT) DRUG THERAPY 03/09/2017 TC PEREZ MD, Ot R13.10 DYSPHAGIA, UNSPECIFIED 03/09/2017 TC PEREZ MD, Ot Z01.818 ENCOUNTER FOR OTHER PREPROCEDURAL EXAMIN 03/10/2017 TC PEREZ MD, Ot G40.909 EPILEPSY, UNSP, NOT INTRACTABLE, WITHOUT 03/10/2017 TC PEREZ MD Ot K21.0 GASTRO-ESOPHAGEAL REFLUX DISEASE WITH ES 03/10/2017 TC PEREZ MD, Ot K22.2 ESOPHAGEAL OBSTRUCTION 03/10/2017 TC PEREZ MD, Ot K29.60 OTHER GASTRITIS WITHOUT BLEEDING 03/10/2017 TC PEREZ MD, Ot M79.7 FIBROMYALGIA 03/10/2017 TC PEREZ MD, Ot Z79.899 OTHER PRISON (CURRENT) DRUG THERAPY 03/16/2017 SHANE MOTT DO S Ot G93.0 CEREBRAL CYSTS 03/18/2017 TC PEREZ MD Ot G40.909 EPILEPSY, UNSP, NOT INTRACTABLE, WITHOUT 03/18/2017 TC PEREZ MD Ot K21.0 GASTRO-ESOPHAGEAL REFLUX DISEASE WITH ES 03/18/2017 TC PEREZ MD, Ot K22.2 ESOPHAGEAL OBSTRUCTION 03/18/2017 TC PEREZ MD, Ot K29.60 OTHER GASTRITIS WITHOUT BLEEDING 03/18/2017 TC PEREZ MD Ot M79.7 FIBROMYALGIA 03/18/2017 TC PEREZ MD Ot Z79.899 OTHER SHAPE CARVER (CURRENT) DRUG THERAPY 11/30/2017 Ot F41.9 ANXIETY DISORDER, UNSPECIFIED 11/30/2017 Ot G40.909 EPILEPSY, UNSP, NOT INTRACTABLE, WITHOUT 11/30/2017 Ot H92.03 OTALGIA, BILATERAL 11/30/2017 Ot J45.909 UNSPECIFIED ASTHMA, UNCOMPLICATED 11/30/2017 Ot S09.91XA UNSPECIFIED INJURY OF EAR, INITIAL ENCOU 11/30/2017 Ot X50.0XXA OVEREXERTION FROM STRENUOUS MOVEMENT OR 11/30/2017 Ot Z88.6 ALLERGY STATUS TO ANALGESIC AGENT STATUS 11/30/2017 Ot Z90.710 ACQUIRED ABSENCE OF BOTH CERVIX AND UTER 11/30/2017 Ot Z98.51 TUBAL LIGATION STATUS 12/05/2017 Ot F41.9 ANXIETY DISORDER, UNSPECIFIED 12/05/2017 Ot G40.909 EPILEPSY, UNSP, NOT INTRACTABLE, WITHOUT 12/05/2017 Ot H92.03 OTALGIA, BILATERAL 12/05/2017 Ot J45.909 UNSPECIFIED ASTHMA, UNCOMPLICATED 12/05/2017 Ot S09.91XA UNSPECIFIED INJURY OF EAR, INITIAL ENCOU 12/05/2017 Ot X50.0XXA OVEREXERTION FROM STRENUOUS MOVEMENT OR 12/05/2017 Ot Z88.6 ALLERGY STATUS TO ANALGESIC AGENT STATUS 12/05/2017 Ot Z90.710 ACQUIRED ABSENCE OF BOTH CERVIX AND UTER 12/05/2017 Ot Z98.51 TUBAL LIGATION STATUS 02/08/2018 MITA MOTT DOLINE S Ot R41.3 OTHER AMNESIA 02/08/2018 TIKINDER DONIURKASHANE S Ot R51 HEADACHE 02/08/2018 TIKINDCARLOS DONIURKASHANE S Ot R55 SYNCOPE AND COLLAPSE 02/08/2018 TIKINDER DONIURKASHANE S Ot F19.90 OTHER PSYCHOACTIVE SUBSTANCE USE, UNSPEC 02/08/2018 TIKINDER MITA TOLENTINOLINE S Ot G93.0 CEREBRAL CYSTS Procedures There is no data. Results Test [...] Status Pt. Type Provider Facility Loc./Unit Complaint [id number] 03/04/2017 11:35:00 03/04/2017 15:02:00 DIS Outpatient TC PEREZ MD [facility] ENDO DYSPHAGIA [id number] 03/03/2017 05:41:00 03/03/2017 14:05:00 DIS Outpatient TC PEREZ MD [facility] PREOP DYSPHAGIA [id number] 02/25/2017 10:06:00 02/25/2017 23:59:59 CLS Outpatient SHANE MOTT DO S [facility] RAD G93.0 [id number] 09/14/2016 21:30:00 09/14/2016 22:15:00 DIS Emergency NATE MEJÍA MD [facility] ER POSS SPIDER BITE [id number] 04/16/2016 09:55:00 04/16/2016 13:59:00 DIS Emergency TRINITY VALLECILLO MD [facility] ER COUGH/CHEST CONGESTION [id number] 09/11/2015 20:27:00 09/11/2015 23:56:00 DIS Emergency TRINITY VALLECILLO MD [facility] ER ABD PAIN [id number] 08/02/2015 17:06:00 08/02/2015 23:59:59 CLS Outpatient TIFFANY TOLENTINOMITASHANE S [facility] LAB TYLENOL OVERUSAGE [id number] 03/24/2015 22:20:00 03/25/2015 00:26:00 DIS Emergency GAVIN BISWAS DO [facility] ER POSSIBLE OVERDOSE [id number] 03/21/2015 15:31:00 03/21/2015 23:59:59 CLS Outpatient TIFFANY TOLENTINOMITASHANE S [facility] RAD CERVICALGIA [id number] 03/13/2015 16:08:00 03/13/2015 23:59:59 CLS Outpatient TIFFANY TOLENTINOMITASHANE S [facility] RAD CEPHALGIA, NECK PAIN WITH PARETHESIA [id number] 02/25/2015 13:41:00 02/26/2015 18:28:00 DIS Inpatient TIFFANY TOLENTINOMITASHANE S [facility] 4TH SEIZURE LIKE EPISODE [id number] 10/06/2014 16:27:00 10/07/2014 16:05:00 DIS Inpatient TIFFANY TOLENTINONIURKASHANE S [facility] 4TH CONVERSION DISORDER, AMS [id number] 02/07/2014 13:15:00 02/07/2014 15:23:00 DIS Emergency PASTOR GONZALES MD [facility] ER CHEST PAIN [id number] 08/16/2013 00:23:00 08/16/2013 02:14:00 DIS Emergency PASTOR GONZALES MD [facility] ER SOB [id number] 09/13/2012 15:22:00 09/13/2012 16:12:00 DIS Emergency NATE MEJÍA MD [facility] ER [id number] 11/29/2017 23:27:00 Document Registration [id number] 07/27/2012 23:14:00 Document Registration [id number] 06/03/2012 16:05:00 Document Registration [id number] 06/02/2012 21:46:00 Document Registration [id number] 10/15/2011 16:32:00 Document Registration [id number] 05/25/2011 14:30:00 Document Registration [id number] 10/25/2010 10:39:00 Document Registration [id number] 07/21/2010 03:28:00 Document Registration 06/201702/10/2018 09:42:07 ACT Outpatient Shane Mott
[2018-02-10] MEDS ORDERED: KETOROLAC 30 MG/ML VIAL IVP STA (16:47)
[2018-02-10] MEDS ORDERED: LACTATED RINGERS 1,000 ML IV ONE (16:47)
[2018-02-10 16:57] LABS: BASOPHILS # (AUTO) 0.1 10^3/uL (0.0-0.1); BASOPHILS % (AUTO) 0 % (0-10); EOSINOPHILS # (AUTO) 0.8 10^3/uL (0.0-0.3); EOSINOPHILS % (AUTO) 6 % (0-10); HEMATOCRIT 40 % (35-52); HEMOGLOBIN 13.8 G/DL (11.5-16.0); LYMPHOCYTES # (AUTO) 3.9 X 10^3 (1.0-4.0); LYMPHOCYTES % (AUTO) 30 % (12-44); MEAN CORPUSCULAR HEMOGLOBIN 30 PG (25-34); MEAN CORPUSCULAR HGB CONC 35 G/DL (32-36); MEAN CORPUSCULAR VOLUME 86 FL (80-99); MONOCYTES # (AUTO) 0.9 X 10^3 (0.0-1.0); MONOCYTES % (AUTO) 7 % (0-12); NEUTROPHILS # (AUTO) 7.5 X 10^3 (1.8-7.8); NEUTROPHILS % (AUTO) 57 % (42-75); PLATELET COUNT 362 10^3/uL (130-400); RED BLOOD COUNT 4.62 10^6/uL (4.35-5.85); RED CELL DISTRIBUTION WIDTH 12.6 % (10.0-14.5); WHITE BLOOD COUNT 13.1 10^3/uL (4.3-11.0)
[2018-02-10 16:59] LABS: BILIRUBIN,URINE NEGATIVE (NEGATIVE); CLARITY,URINE CLEAR; COLOR,URINE YELLOW; GLUCOSE, URINE (UA) NEGATIVE (NEGATIVE); KETONES,URINE NEGATIVE (NEGATIVE); LEUKOCYTE ESTERASE ,URINE NEGATIVE (NEGATIVE); NITRITE,URINE NEGATIVE (NEGATIVE); PH,URINE 6 (5-9); PROTEIN,URINE 1+ (NEGATIVE); UROBILINOGEN,URINE NORMAL (NORMAL)
[2018-02-10] MEDS ORDERED: ONDANSETRON 4 MG/2 ML (SDV) Z0FRAN IVP ONE (17:00)
[2018-02-10] MEDS ORDERED: ORPHENADRINE 60 MG/2 ML (NORFLEX) AMP IV ONE (17:00)
--- NOTE | 2018-02-10 17:00 | ED Abdominal Pain ---
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 PCP: DR. ALLEN Allergies and Home Medications Allergies Coded Allergies: morphine (Verified Allergy, Mild, 02/25/15) Home Medications Cholecalciferol (Vitamin D3) 1,000 Unit Capsule, 1,000 UNIT PO DAILY, (Reported) Gabapentin 100 Mg Capsule, 100 MG PO HS, (Reported) Meloxicam 15 Mg Tablet, 15 MG PO DAILY, (Reported) Nortriptyline HCl 10 Mg Capsule, 10 MG PO HS, (Reported) Pantoprazole Sodium 40 Mg Tablet.dr, 40 MG PO DAILY Prescribed by: TC PEREZ on 03/04/17 1401 Promethazine HCl 25 Mg Supp.rect, 25 MG RC Q4H Prescribed by: GAVIN BISWAS on 02/10/181805 Tizanidine HCl 4 Mg Capsule, 4 MG PO TID Prescribed by: GAVIN BISWAS on 02/10/181805 Tramadol HCl 50 Mg Tablet, 50 MG PO Q4H Prescribed by: GAVIN BISWAS on 02/10/181805 Patient Home Medication List Home Medication List Reviewed: Yes Review of Systems Review of Systems Constitutional: no symptoms reported Respiratory: No Symptoms Reported Cardiovascular: No Symptoms Reported Gastrointestinal: See HPI, Abdominal Pain; Denies Constipated, Denies Diarrhea ; Nausea; Denies Vomiting Genitourinary: See HPI, Frequency, Flank Pain Musculoskeletal: see HPI, back pain Skin: no symptoms reported Psychiatric/Neurological: Anxiety Endocrine: No Symptoms Reported Hematologic/Lymphatic: No Symptoms Reported Past Qfbyvmq-Leiatt-Yckreg Hx Patient Social History Alcohol Use: Past History (AGE 16) Recreational Drug Use: Yes (AGE 16) Smoking Status: Former Smoker (AGE 16) Recent Foreign Travel: No Contact w/Someone Who Travel: No Recent Hopitalizations: No Immunizations Up To Date Tetanus Booster (TDap): Unknown Seasonal Allergies Seasonal Allergies: No Past Medical History Surgeries: Yes (RIGHT LEG ORTHO SURGERY CHILD, [facility] HERNIA; HYST/OVARIES INTACT; EGD) Gallbladder, Hysterectomy, Orthopedic Respiratory: Yes Asthma Currently Using CPAP: No Currently Using BIPAP: No Cardiac: No Neurological: Yes (PSEUDOSEIZURES) Seizure Disorder Reproductive Disorders: 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, 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 Genitourinary: No Gastrointestinal: Yes Gastroesophageal Reflux, Esophagitis, Hiatal Hernia Musculoskeletal: Yes (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) Arthritis, Fibromyalgia Endocrine: No (hypoglycemia) HEENT: No Cancer: No Psychosocial: Yes Pseudo Seizures, Anxiety Integumentary: No Blood Disorders: No Family Medical History Alcoholism 19 FATHER Asthma G8 BROTHER Myocardial infarction (MATERNAL GRANDFATHER [place]) No Pertinent Family Hx Physical Exam Vital Signs Vital Signs - First Documented 02/10/18 17:06 Temp 96.9 Pulse 117 Resp 18 B/P (MAP) 166/96 (119) Pulse Ox 99 Capillary Refill : Height/Weight/BMI Height: 5'6.00" Weight: 200lbs. 0.0oz. 90.396554ws; 32.3 BMI Method:Stated General Appearance: WD/WN, other (PT MOANING VERY LOUDLY, WAILING, THRASHING ALL OVER, VERY DRAMATIC, ALMOST HYSTERICAL, HOLDING RIGHT FLANK) Respiratory: normal breath sounds, no respiratory distress, no accessory muscle use Cardiovascular: regular rate, rhythm, no murmur Gastrointestinal: normal bowel sounds, soft, guarding, tenderness (DIFFUSE RIGHT SIDED ABDOMEN, RIGHT FLANK AND EPIGASTRIC TENDERNESS. 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, no motor/sensory deficits, alert, oriented x 3 Skin: normal color, warm/dry Progress/Results/Core Measures Results/Orders Lab Results Laboratory Tests Test 02/10/18 16:49 10/24/18 16:52 Range/Units White Blood Count 13.1 H 4.3-11.0 10^3/uL Red Blood Count 4.62 4.35-5.85 10^6/uL Hemoglobin 13.8 11.5-16.0 G/DL Hematocrit 40 35-52 % Mean Corpuscular Volume 86 80-99 FL Mean Corpuscular Hemoglobin 30 25-34 PG Mean Corpuscular Hemoglobin Concent 35 32-36 G/DL Red Cell Distribution Width 12.6 10.0-14.5 % Platelet Count 362 130-400 10^3/uL Mean Platelet Volume 9.0 7.4-10.4 FL Neutrophils (%) (Auto) 57 42-75 % Lymphocytes (%) (Auto) 30 12-44 % Monocytes (%) (Auto) 7 0-12 % Eosinophils (%) (Auto) 6 0-10 % Basophils (%) (Auto) 0 0-10 % Neutrophils # (Auto) 7.5 1.8-7.8 X 10^3 Lymphocytes # (Auto) 3.9 1.0-4.0 X 10^3 Monocytes # (Auto) 0.9 0.0-1.0 X 10^3 Eosinophils # (Auto) 0.8 H 0.0-0.3 10^3/uL Basophils # (Auto) 0.1 0.0-0.1 10^3/uL Sodium Level 138 135-145 MMOL/L Potassium Level 3.8 3.6-5.0 MMOL/L Chloride Level 105 98-107 MMOL/L Carbon Dioxide Level 20 L 21-32 MMOL/L Anion Gap 13 5-14 MMOL/L Blood Urea Nitrogen 8 7-18 MG/DL Creatinine 0.68 0.60-1.30 MG/DL Estimat Glomerular Filtration Rate > 60 BUN/Creatinine Ratio 12 Glucose Level 103 70-105 MG/DL Calcium Level 9.3 8.5-10.1 MG/DL Corrected Calcium 9.1 8.5-10.1 MG/DL Total Bilirubin 0.4 0.1-1.0 MG/DL Aspartate Amino Transf (AST/SGOT) 18 5-34 U/L Alanine Aminotransferase (ALT/SGPT) 22 0-55 U/L Alkaline Phosphatase 86 40-136 U/L Total Protein 7.3 6.4-8.2 GM/DL Albumin 4.2 3.2-4.5 GM/DL Amylase Level 27 25-125 U/L Lipase 20 8-78 U/L Urine Color YELLOW Urine Clarity CLEAR Urine pH 6 5-9 Urine Specific [place] 1.010 L 1.016-1.022 Urine Protein 1+ H NEGATIVE Urine Glucose (UA) NEGATIVE NEGATIVE Urine Ketones NEGATIVE NEGATIVE Urine Nitrite NEGATIVE NEGATIVE Urine Bilirubin NEGATIVE NEGATIVE Urine Urobilinogen NORMAL NORMAL MG/DL Urine Leukocyte Esterase NEGATIVE NEGATIVE Urine RBC (Auto) 2+ H NEGATIVE Urine RBC 0-2 /HPF Urine WBC NONE /HPF Urine Squamous Epithelial Cells 5-10 /HPF Urine Crystals NONE /LPF Urine Bacteria NEGATIVE /HPF Urine Casts NONE /LPF Urine Mucus NEGATIVE /LPF Urine Yeast FEW H /HPF Urine Culture Indicated NO My Orders Orders - GAVIN BISWAS DO Saline Lock/Iv-Start (02/10/18 16:47) Amylase (02/10/18 16:47) Cbc With Automated Diff (02/10/18 16:47) Comprehensive Metabolic Panel (02/10/18 16:47) Lipase (02/10/18 16:47) Ua Culture If Indicated (02/10/18 16:47) Ct Abd/Pelvis Wo(Kidney Stone) (02/10/18 16:47) Saline Lock/Iv-Start (02/10/18 16:47) Lactated Ringers (Lr 1000 Ml Iv Solution (02/10/18 16:47) Ondansetron Injection (Zofran Injectio (02/10/18 17:00) Ketorolac Injection (Toradol Injection) (02/10/18 16:47) Orphenadrine Injection (Norflex Injectio (02/10/18 17:00) Promethazine Injection (Phenergan Injec (02/10/18 18:15) Diphenhydramine Injection (Benadryl Inje (02/10/18 18:15) Medications Given in ED Current Medications Medications Dose Ordered Sig/Terrell Route Start Time Stop Time Status Last Admin Dose Admin Diphenhydramine HCl 50 mg ONCE ONCE IVP 02/10/18 18:15 02/10/18 18:16 DC 02/10/18 18:21 50 MG Lactated Ringer's 1,000 ml @ 0 mls/hr Q0M ONCE IV 02/10/18 16:47 02/10/18 16:50 DC 02/10/18 16:57 0 MLS/HR Ondansetron HCl 4 mg ONCE ONCE IVP 02/10/18 17:00 02/10/18 17:01 DC 02/10/18 16:58 4 MG Orphenadrine Citrate 60 mg ONCE ONCE IV 02/10/18 17:00 02/10/18 17:01 DC 02/10/18 16:58 60 MG Promethazine HCl 25 mg ONCE ONCE IVP 02/10/18 18:15 02/10/18 18:16 DC 02/10/18 18:21 25 MG Vital Signs/I&O 02/10/18 02/10/18 17:06 18:37 Temp 96.9 Pulse 117 100 Resp 18 20 B/P (MAP) 166/96 (119) 132/90 (104) Pulse Ox 99 98 Progress Progress Note : Progress Note SYMPTOMS IMPROVED AT DISMISSAL AND NO VOMITING DURING ER STAY. NAUSEA IMPROVED AND PAIN EASED AT DISMISSAL, AND PT CALMER. Diagnostic Imaging Comments CT ABDOMEN/PELVIS-NO ACUTE PROCESS, SMALL RIGHT OVARIAN CYST, HEPATIC STEATOSIS , PER RADIOLOGIST REPORT @ 1756 Reviewed: Reviewed by Me Departure Impression Primary Impression: Right sided abdominal pain Additional Impression: Epigastric abdominal pain Disposition: HOME, SELF-CARE Condition: Improved Departure-Patient Inst. Referrals: SHANE ALLEN DO (PCP/Family) Primary Care Physician Patient Instructions: Acute Abdomen (Belly Pain), Adult (DC) Add. Discharge Instructions: MOIST HEAT TO AREA AT 20 MINUTE INTERVALS CONTINUE MELOXICAM DAILY LOTS OF CLEAR LIQUIDS FOLLOW UP WITH YOUR DR IN 1-2 DAYS FOR FURTHER CARE Scripts Tramadol HCl (Ultram) 50 Mg Tablet 50 MG PO Q4H, #20 TAB Prov: GAVIN BISWAS DO 02/10/18 Tizanidine HCl (Zanaflex) 4 Mg Capsule 4 MG PO TID, #10 CAP Prov: GAVIN BISWAS DO 02/10/18 Promethazine HCl (Phenergan) 25 Mg Supp.rect 25 MG RC Q4H for Nausea/Vomiting, #10 SUPP.RECT Prov: GAVIN BISWAS DO 02/10/18 GAVIN BISWAS DO Feb 10, 2018 17:00
[2018-02-10 17:08] LABS: BACTERIA,URINE NEGATIVE /HPF; RBC,URINE 0-2 /HPF
[2018-02-10 17:09] LABS: YEAST,URINE FEW /HPF
[2018-02-10 17:14] LABS: ALANINE AMINOTRANSFERASE 22 U/L (0-55); ALBUMIN 4.2 GM/DL (3.2-4.5); ALKALINE PHOSPHATASE 86 U/L (40-136); AMYLASE 27 U/L (25-125); BILIRUBIN,TOTAL 0.4 MG/DL (0.1-1.0); BUN/CREATININE RATIO 12; CALCIUM 9.3 MG/DL (8.5-10.1); CARBON DIOXIDE 20 MMOL/L (21-32); CHLORIDE 105 MMOL/L (98-107); CREATININE SERUM 0.68 MG/DL (0.60-1.30); GFR ESTIMATED > 60; GLUCOSE 103 MG/DL (70-105); LIPASE 20 U/L (8-78); POTASSIUM 3.8 MMOL/L (3.6-5.0); SODIUM 138 MMOL/L (135-145); TOTAL PROTEIN 7.3 GM/DL (6.4-8.2)
--- NOTE | 2018-02-10 17:54 | Diagnostic Imaging Report ---
PROCEDURE: CT urinary tract, rule out kidney stone. TECHNIQUE: Multiple contiguous axial images were obtained through the abdomen and pelvis without the use of intravenous contrast. INDICATION: Right lower quadrant pain and right flank pain for 2 days. Nausea. COMPARISON: 09/11/2015 FINDINGS: The lung bases are clear. The heart is normal in size. There is no pericardial effusion. There is fatty infiltration of the liver. No focal hepatic lesions are seen. The spleen appears normal. The pancreas is normal. The adrenal glands are normal. There is no hydronephrosis or hydroureter bilaterally. No renal calculi are seen. The bowel loops are nondistended without evidence of obstruction. The appendix is normal. No free air is seen. There is a right ovarian cyst measuring up to 2.8 cm. There are moderate degenerative changes at L5-S1 in the lumbar spine. IMPRESSION: 1. No renal calculi or hydronephrosis. No appendicitis. 2. Right ovarian cyst measuring 2.8 cm. 3. Hepatic steatosis. Dictated by: Dictated on workstation # [id number]
[2018-02-10] MEDS ORDERED: TIZA4CAP PO (18:06)
[2018-02-10] MEDS ORDERED: PROM25SU43 RC (18:06)
[2018-02-10] MEDS ORDERED: TRAM-42 PO (18:06)
[2018-02-10] MEDS ORDERED: PROMETHAZINE INJ 25 MG/ML (PHENERGAN) AMP IVP ONE (18:15)
[2018-02-10] MEDS ORDERED: diphenhydrAMINE 50 MG/ML INJ (BENADRYL) IVP ONE (18:15)
[2018-02-10 18:37] VITALS: BP 132/90
== END 2018-02-10 18:37 | disposition home or self-care (01) ==
LOC: EDUNIT# 16:34 → ER 16:36
DX: R10.13 Epigastric pain (principal); J45.909 Unspecified asthma, uncomplicated; G40.909 Epilepsy, unspecified, not intractable, without status epilepticus; K21.9 Gastro-esophageal reflux disease without esophagitis; F41.9 Anxiety disorder, unspecified; Z87.19 Personal history of other diseases of the digestive system; Z82.49 Family history of ischemic heart disease and other diseases of the circulatory system; Z98.51 Tubal ligation status; Z90.49 Acquired absence of other specified parts of digestive tract; Z90.711 Acquired absence of uterus with remaining cervical stump; Z88.5 Allergy status to narcotic agent; Z87.891 Personal history of nicotine dependence
CPT/HCPCS: 36415; 74176; 80053; 81000; 82150; 83690; 85025; 96374; 96375

== ENCOUNTER → 2018-02-10 | Outpatient (CLI) | payer BC ==
[~2018-02-10] MED LIST changes: +PROM25SU43 RC; +TIZA4CAP PO; +TRAM-42 PO
--- NOTE | 2018-02-10 17:02 | Diagnostic Imaging Report ---
INDICATION: Right flank pain, nausea. EXAMINATION: Abdomen. FINDINGS: The bowel gas pattern is normal. No suspicious calcifications. No abnormal fecal load. IMPRESSION: Negative. Dictated by: Dictated on workstation # [id number]
== END ==
LOC: RAD 15:57
PROVIDERS: ATTEND Nurse Practitioner Family
DX: R10.9 Unspecified abdominal pain (principal); R11.0 Nausea
CPT/HCPCS: 74019

== ENCOUNTER 2018-08-24 17:30 | Emergency (ER) | payer BC ==
[~2018-08-24] VITALS: Ht 167.6 cm; Wt 86.2 kg
[~2018-08-24 17:30] MED LIST changes: +PROM25SU43 RC; +TIZA4CAP PO; +TRAM-42 PO
--- NOTE | 2018-08-24 17:53 | ED Chest Pain ---
General Chief Complaint: Cardiac/General Problems Stated Complaint: CP History of Present Illness Date Seen by Provider: August 24, 2018 Time Seen by Provider: 17:35 Initial Comments 48-year-old FEMALE presents for right shoulder and pectoralis pain that began 3 days ago. The patient was lifting several gallons of orange juice from ground-level to over her shoulder height prior to the pain starting. She has been taking tramadol with minimal improvement in her symptoms. She is able to sleep at night and took a nap today without the pain keeping her awake. She denies any history of cardiac disease, diabetes, or family history of cardiac disease. She denies any diaphoresis, nausea or vomiting associated with the pain. Timing/Duration: 2-3 days Severity/Quality: moderate Location: central, shoulder Radiation: arms (left) Prior CP/Workup: no prior chest pain ASA po ROLL GRINDER: No NTG SL ROLL GRINDER: No Associated Symptoms: denies symptoms Allergies and Home Medications Allergies Coded Allergies: morphine (Verified Allergy, Mild, 02/25/15) Home Medications Cholecalciferol (Vitamin D3) 1,000 Unit Capsule, 1,000 UNIT PO DAILY, (Reported) Gabapentin 100 Mg Capsule, 100 MG PO HS, (Reported) Meloxicam 15 Mg Tablet, 15 MG PO DAILY, (Reported) Nortriptyline HCl 10 Mg Capsule, 10 MG PO HS, (Reported) Pantoprazole Sodium 40 Mg Tablet.dr, 40 MG PO DAILY Prescribed by: TC PEREZ on 03/04/17 1401 Promethazine HCl 25 Mg Supp.rect, 25 MG RC Q4H Prescribed by: GAVIN BISWAS on 02/10/181805 Tizanidine HCl 4 Mg Capsule, 4 MG PO TID Prescribed by: GAVIN BISWAS on 02/10/181805 Tramadol HCl 50 Mg Tablet, 50 MG PO Q4H Prescribed by: GAVIN BISWAS on 02/10/18 180 Tramadol HCl 50 Mg Tablet, 50 MG PO Q6H PRN for PAIN Prescribed by: DAMIEN ROJAS on 08/24/18 1859 Patient Home Medication List Home Medication List Reviewed: Yes Review of Systems Review of Systems Constitutional: no symptoms reported, see HPI Cardiovascular: See HPI, Chest Pain (able to palpate the pain in upper left chest and left shoulder) Musculoskeletal: see HPI, joint pain, muscle pain (left shoulder), muscle cramps All Other Systems Reviewed Negative Unless Noted: Yes Past Nwxoyqa-Brlsie-Qktprb Hx Past Med/Social Hx: Reviewed Nursing Past Med/Soc Hx Patient Social History Alcohol Use: Denies Use Recreational Drug Use: No Smoking Status: Never a Smoker 2nd Hand Smoke Exposure: No Recent Foreign Travel: No Contact w/Someone Who Travel: No Recent Hopitalizations: No Physical Abuse: No Sexual Abuse: No Mistreated: No Fear: No Immunizations Up To Date Tetanus Booster (TDap): Unknown Seasonal Allergies Seasonal Allergies: No Past Medical History Surgeries: Yes (RIGHT LEG ORTHO SURGERY CHILD, [facility] HERNIA; HYST/OVARIES INTACT; EGD) Gallbladder, Hysterectomy, Orthopedic Respiratory: Yes Asthma Currently Using CPAP: No Currently Using BIPAP: No Cardiac: No Neurological: Yes (PSEUDOSEIZURES) Seizure Disorder Reproductive Disorders: 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, 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 Genitourinary: No Gastrointestinal: Yes Gastroesophageal Reflux, Esophagitis, Hiatal Hernia Musculoskeletal: Yes (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) Arthritis, Fibromyalgia Endocrine: No (hypoglycemia) HEENT: No Cancer: No Psychosocial: Yes Pseudo Seizures, Anxiety Integumentary: No Blood Disorders: No Family Medical History Alcoholism 19 FATHER Asthma G8 BROTHER Myocardial infarction (MATERNAL GRANDFATHER [place]) No Pertinent Family Hx Physical Exam Vital Signs Vital Signs - First Documented 08/24/18 17:30 Temp 97.6 Pulse 99 Resp 18 B/P (MAP) 127/81 (96) Pulse Ox 99 O2 Delivery Room Air Capillary Refill : Height, Weight, BMI Height: 5'6.00" Weight: 204lbs. 0.0oz. 92.910912jj; 32.3 BMI Method:Stated General Appearance: No Apparent Distress, WD/WN HEENT: PERRL/EOMI, TMs Normal, Normal ENT Inspection, Pharynx Normal Neck: Full Range of Motion, Normal Inspection, Non Tender Respiratory: Lungs Clear, Normal Breath Sounds, Other (tender to palpation left anterior chest) Cardiovascular: Regular Rate, Rhythm, No Edema, No Murmur, Normal Peripheral Pulses Gastrointestinal: Normal Bowel Sounds, Non Tender, Soft Extremity: Normal Capillary Refill, Normal Inspection, Normal Range of Motion, Other (left shoulder full range of motion, with pain at end points. Neg apprehension and [place]. Power V/V biceps, triceps and ext rotators. Pain with resisted abduction. Neuro vasc status intact bilat UE. ) Neurologic/Psychiatric: Alert, Oriented x3, No Motor/Sensory Deficits Skin: Normal Color, Warm/Dry Progress/Results/Core Measures Results/Orders Lab Results Laboratory Tests Test 08/24/18 17:38 08/24/18 17:44 Range/Units White Blood Count 11.3 H 4.3-11.0 10^3/uL Red Blood Count 4.56 4.35-5.85 10^6/uL Hemoglobin 13.6 11.5-16.0 G/DL Hematocrit 39 35-52 % Mean Corpuscular Volume 86 80-99 FL Mean Corpuscular Hemoglobin 30 25-34 PG Mean Corpuscular Hemoglobin Concent 35 32-36 G/DL Red Cell Distribution Width 12.9 10.0-14.5 % Platelet Count 345 130-400 10^3/uL Mean Platelet Volume 9.2 7.4-10.4 FL Neutrophils (%) (Auto) 51 42-75 % Lymphocytes (%) (Auto) 36 12-44 % Monocytes (%) (Auto) 6 0-12 % Eosinophils (%) (Auto) 7 0-10 % Basophils (%) (Auto) 0 0-10 % Neutrophils # (Auto) 5.7 1.8-7.8 X 10^3 Lymphocytes # (Auto) 4.0 1.0-4.0 X 10^3 Monocytes # (Auto) 0.7 0.0-1.0 X 10^3 Eosinophils # (Auto) 0.8 H 0.0-0.3 10^3/uL Basophils # (Auto) 0.0 0.0-0.1 10^3/uL Prothrombin Time 13.5 12.2-14.7 SEC INR Comment 1.0 0.8-1.4 Activated Partial Thromboplast Time 36 H 24-35 SEC Sodium Level 138 135-145 MMOL/L Potassium Level 3.8 3.6-5.0 MMOL/L Chloride Level 107 98-107 MMOL/L Carbon Dioxide Level 22 21-32 MMOL/L Anion Gap 9 5-14 MMOL/L Blood Urea Nitrogen 14 7-18 MG/DL Creatinine 0.74 0.60-1.30 MG/DL Estimat Glomerular Filtration Rate > 60 BUN/Creatinine Ratio 19 Glucose Level 109 H 70-105 MG/DL Calcium Level 9.3 8.5-10.1 MG/DL Corrected Calcium 9.1 8.5-10.1 MG/DL Magnesium Level 1.8 1.8-2.4 MG/DL Total Bilirubin 0.3 0.1-1.0 MG/DL Aspartate Amino Transf (AST/SGOT) 21 5-34 U/L Alanine Aminotransferase (ALT/SGPT) 24 0-55 U/L Alkaline Phosphatase 84 40-136 U/L Myoglobin 28.4 10.0-92.0 NG/ML Troponin I < 0.028 <0.028 NG/ML Total Protein 7.5 6.4-8.2 GM/DL Albumin 4.3 3.2-4.5 GM/DL Glucometer 122 H 70-110 MG/DL My Orders Orders - DAMIEN ROJAS Cbc With Automated Diff (08/24/18 17:47) Magnesium (08/24/18 17:47) Chest 1 View, Ap/Pa Only (08/24/18 17:47) Ekg Tracing (08/24/18 17:47) Cardiac Profile 1 (08/24/18 17:47) Comprehensive Metabolic Panel (08/24/18 17:47) Myoglobin Serum (08/24/18 17:47) Protime With Inr (08/24/18 17:47) Partial Thromboplastin Time (08/24/18 17:47) O2 (08/24/18 17:47) Monitor-Rhythm Ecg Trace Only (08/24/18 17:47) Ed Iv/Invasive Line Start (08/24/18 17:47) Aspirin Chewable Tablet (Baby Aspirin Ch (08/24/18 18:00) Ketorolac Injection (Toradol Injection) (08/24/18 18:30) Ketorolac Injection (Toradol Injection) (08/24/18 18:30) Acetaminophen Tablet/Caplet (Tylenol T (08/24/18 19:00) Medications Given in ED Current Medications Medications Dose Ordered Sig/Terrell Route Start Time Stop Time Status Last Admin Dose Admin Aspirin 324 mg ONCE ONCE PO 08/24/18 18:00 08/24/18 18:01 DC 08/24/18 18:09 324 MG Ketorolac Tromethamine 30 mg ONCE ONCE IV 08/24/18 18:30 08/24/18 18:31 DC 08/24/18 18:34 30 MG Vital Signs/I&O 08/24/18 08/24/18 08/24/18 17:30 17:40 18:56 Temp 97.6 97.6 Pulse 99 97 Resp 18 18 B/P (MAP) 127/81 (96) 114/86 (95) Pulse Ox 99 100 96 O2 Delivery Room Air Room Air Nasal Cannula Progress Progress Note : Time: 17:35 Progress Note Patient seen and evaluated, obtain EKG and will give aspirin 324 mg orally. Chest x-ray and labs to be completed. 1815 exam and labs indicate musculoskeletal. Symptoms present 3 days and normal troponin. Will give Toradol 30 mg IM. 1845 Patient reports improvement in her symptoms. Will discharge home. Discharge instructions and return precautions reviewed with her. Initial ECG Impression Date: August 24, 2018 Initial ECG Impression Time: 17:40 Initial ECG Rate: 109 Initial ECG Rhythm: S.Tach Initial ECG Intervals: Normal Initial ECG Intervals MN 136, QRS T 76, QT 332, QTC 448. Spruce P 49, QRS 4, T 51 Initial ECG Impression: Normal Initial ECG Comparisson: No Previous ECG Available Comment Reviewed with Dr. Leija, concurred with interpretation. Diagnostic Imaging Diagonstic Imaging: Xray Plain Films/CT/US/NM/MRI: chest Comments NAME: JOSE ALBERTO VERA [facility] REC#: [id number] PT STATUS: REG ER : 1970 PHYSICIAN: DAMIEN ROJAS ADMIT DATE: 08/24/18/ER Draft Date of Exam:08/24/18 CHEST 1 VIEW, AP/PA ONLY INDICATION: Chest pain. EXAMINATION: Upright portable AP view of the chest is obtained with comparison made to study of 04/16/2016. FINDINGS: Heart size and pulmonary vascularity are within normal limits, and the lungs are clear, bilaterally. IMPRESSION: Unremarkable chest. Dictated on workstation # [id number] Dict: 08/24/181820 Trans: 08/24/181822 [id number] Interpreted by: GREGORIO COY MD Electronically signed by: Reviewed: Reviewed by Me Departure Impression Primary Impression: Strain of left pectoralis muscle Qualified Codes: S29.011A - Strain of muscle and tendon of front wall of thorax, initial encounter Additional Impression: Costochondritis, acute Disposition: 01 HOME, SELF-CARE Condition: Improved Departure-Patient Inst. Decision time for Depature: 18:45 Referrals: SHANE MOTT DO (PCP/Family) Primary Care Physician Patient Instructions: Costochondritis (DC), Muscle Strain Add. Discharge Instructions: Alternate hot packs and ice pack to left shoulder. Take Tylenol 650 mg every 6-8 hours for pain. For increased pain with tramadol 1 every 8 hours. Follow-up with Dr. Mott if symptoms are not improving or worsen Return to emergency department for new, urgent health care needs. All discharge instructions reviewed with patient and/or family. Voiced understanding. Scripts Tramadol HCl (Tramadol HCl) 50 Mg Tablet 50 MG PO Q6H PRN for PAIN, #15 TAB 0 Refills Prov: DAMIEN ROJAS 08/24/18 Work/School Note: Work Release Form Date Seen in the Emergency Department: August 24, 2018 Return to Work: August 26, 2018 Other Restrictions Listed Below: Limit 5 pounds lifting with left arm Copy Copies To 1: SHANE MOTT AMY ARNP August 24, 2018 17:52
[2018-08-24 17:55] LABS: BASOPHILS % (AUTO) 0 % (0-10); EOSINOPHILS # (AUTO) 0.8 10^3/uL (0.0-0.3); EOSINOPHILS % (AUTO) 7 % (0-10); HEMATOCRIT 39 % (35-52); HEMOGLOBIN 13.6 G/DL (11.5-16.0); LYMPHOCYTES % (AUTO) 36 % (12-44); MEAN CORPUSCULAR HEMOGLOBIN 30 PG (25-34); MEAN CORPUSCULAR HGB CONC 35 G/DL (32-36); MEAN CORPUSCULAR VOLUME 86 FL (80-99); MEAN PLATELET VOLUME 9.2 FL (7.4-10.4); MONOCYTES # (AUTO) 0.7 X 10^3 (0.0-1.0); MONOCYTES % (AUTO) 6 % (0-12); NEUTROPHILS # (AUTO) 5.7 X 10^3 (1.8-7.8); NEUTROPHILS % (AUTO) 51 % (42-75); PLATELET COUNT 345 10^3/uL (130-400); RED CELL DISTRIBUTION WIDTH 12.9 % (10.0-14.5); WHITE BLOOD COUNT 11.3 10^3/uL (4.3-11.0)
[2018-08-24 18:00] LABS: PROTHROMBIN TIME PATIENT 13.5 SEC (12.2-14.7)
[2018-08-24] MEDS ORDERED: ASPIRIN 81 MG CHEW (CHILDREN'S ASA) PO ONE (18:00)
[2018-08-24 18:09] LABS: ALANINE AMINOTRANSFERASE 24 U/L (0-55); ALBUMIN 4.3 GM/DL (3.2-4.5); ALKALINE PHOSPHATASE 84 U/L (40-136); BILIRUBIN,TOTAL 0.3 MG/DL (0.1-1.0); BUN/CREATININE RATIO 19; CALCIUM 9.3 MG/DL (8.5-10.1); CARBON DIOXIDE 22 MMOL/L (21-32); CHLORIDE 107 MMOL/L (98-107); CREATININE SERUM 0.74 MG/DL (0.60-1.30); GFR ESTIMATED > 60; GLUCOSE 109 MG/DL (70-105); MAGNESIUM 1.8 MG/DL (1.8-2.4); POTASSIUM 3.8 MMOL/L (3.6-5.0); SODIUM 138 MMOL/L (135-145); TOTAL PROTEIN 7.5 GM/DL (6.4-8.2)
--- NOTE | 2018-08-24 18:24 | Diagnostic Imaging Report ---
INDICATION: Chest pain. EXAMINATION: Upright portable AP view of the chest is obtained with comparison made to study of 04/16/2016. FINDINGS: Heart size and pulmonary vascularity are within normal limits, and the lungs are clear, bilaterally. IMPRESSION: Unremarkable chest. Dictated by: Dictated on workstation # [id number]
[2018-08-24] MEDS ORDERED: KETOROLAC 30 MG/ML VIAL IV ONE (18:30)
[2018-08-24] MEDS ORDERED: KETOROLAC 15 MG/ML VIAL IV ONE (18:30)
[2018-08-24] MEDS ORDERED: TRAM50TA2 PO (18:52)
[2018-08-24 18:56] VITALS: BP 114/86
[2018-08-24] MEDS ORDERED: ACETAMINOPHEN 325 MG TABLET PO ONE (19:00)
== END 2018-08-24 19:03 | disposition home or self-care (01) ==
LOC: EDUNIT# 17:30 → ER 17:31
DX: S29.011A Strain of muscle and tendon of front wall of thorax, initial encounter (principal); M94.0 Chondrocostal junction syndrome [Tietze]; J45.909 Unspecified asthma, uncomplicated; G40.909 Epilepsy, unspecified, not intractable, without status epilepticus; K21.0 Gastro-esophageal reflux disease with esophagitis; M79.7 Fibromyalgia; F41.9 Anxiety disorder, unspecified; Z87.19 Personal history of other diseases of the digestive system; Z98.51 Tubal ligation status; Z88.5 Allergy status to narcotic agent; Z82.49 Family history of ischemic heart disease and other diseases of the circulatory system; Z90.710 Acquired absence of both cervix and uterus; X50.1XXA Overexertion from prolonged static or awkward postures, initial encounter
CPT/HCPCS: 36415; 71045; 80053; 82962; 83735; 83874; 84484; 85025; 85610; 85730; 93005; 93041; 96374

== ENCOUNTER 2018-12-18 19:03 | Emergency (ER) | payer BC ==
[~2018-12-18] VITALS: Ht 167.6 cm; Wt 95.3 kg
[~2018-12-18 19:03] MED LIST changes: -DULO60CA58 PO; +DULO60CA59 PO
[2018-12-18] MEDS ORDERED: PREG50CA2 (19:43)
[2018-12-18] MEDS ORDERED: FAMO40TA6 (19:43)
[2018-12-18] MEDS ORDERED: TOPI100T11 (19:43)
[2018-12-18] MEDS ORDERED: BUPIVACAINE 0.5% 30 ML (SENSORCAINE) VIAL INJ ONE (22:00)
[2018-12-18] MEDS ORDERED: CEPHALEXIN 250 MG (KEFLEX) CAP PO ONE (22:00)
[2018-12-18] MEDS ORDERED: LIDOCAINE 1% INJ 20 ML 20 ML VIAL INJ ONE (22:00)
[2018-12-18] MEDS ORDERED: CEPH-507 PO (22:00)
[2018-12-18] MEDS ORDERED: RX-HYDROCODONE/APAP 5/325 MG #4 TAB PK PO PRN (22:00)
--- NOTE | 2018-12-18 22:00 | ED Lower Extremity ---
General Chief Complaint: Lower Extremity Stated Complaint: R FOOT PT SAYS "MUSCLE COMING OUT OF TOE",ODOR Nursing Triage Note: left toe pain/wound x1 month Nursing Sepsis Screen: No Definite Risk Source: patient Exam Limitations: no limitations History of Present Illness Date Seen by Provider: Dec 18, 2018 Time Seen by Provider: 21:55 Initial Comments To ER with pain to the lateral aspect of the right great toenail. This began a month ago after she tore back part of the toenail. She has a "lump of tissue" seems to be growing from the site now. Onset: just prior to arrival Severity: moderate Pain/Injury Location: left 1st toe Allergies and Home Medications Allergies Coded Allergies: morphine (Verified Allergy, Mild, 02/25/15) Home Medications Cephalexin 500 Mg Capsule, 500 MG PO TID Prescribed by: IRVIN COOLEY on 12/18/18 2200 Meloxicam 15 Mg Tablet, 15 MG PO DAILY, (Reported) Nortriptyline HCl 10 Mg Capsule, 10 MG PO HS, (Reported) Patient Home Medication List Home Medication List Reviewed: Yes Review of Systems Constitutional: see HPI EENTM: see HPI Respiratory: no symptoms reported Cardiovascular: no symptoms reported Genitourinary: no symptoms reported Musculoskeletal: see HPI Skin: see HPI Psychiatric/Neurological: No Symptoms Reported Past Fkxebfy-Wgykze-Tyyibh Hx Patient Social History Alcohol Use: Denies Use Recreational Drug Use: No Smoking Status: Never a Smoker 2nd Hand Smoke Exposure: No Recent Foreign Travel: No Contact w/Someone Who Travel: No Recent Infectious Disease Expo: No Recent Hopitalizations: No Immunizations Up To Date Tetanus Booster (TDap): Unknown Seasonal Allergies Seasonal Allergies: No Past Medical History Surgeries: Yes (RIGHT LEG ORTHO SURGERY CHILD, [facility] HERNIA; HYST/OVARIES INTACT; EGD) Gallbladder, Hysterectomy, Orthopedic Respiratory: Yes Asthma Currently Using CPAP: No Currently Using BIPAP: No Cardiac: No Neurological: Yes (PSEUDOSEIZURES) Headaches /Migraines, Neuropathy, Seizure Disorder : No 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, 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 Genitourinary: No Gastrointestinal: Yes Gastroesophageal Reflux, Esophagitis, Hiatal Hernia Musculoskeletal: Yes (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) Arthritis, Fibromyalgia Endocrine: No (hypoglycemia) HEENT: No Cancer: No Psychosocial: Yes Pseudo Seizures, Anxiety Integumentary: No Blood Disorders: No Family Medical History Alcoholism 19 FATHER Asthma G8 BROTHER Myocardial infarction (MATERNAL GRANDFATHER [place]) No Pertinent Family Hx Physical Exam Vital Signs Vital Signs - First Documented 12/18/18 19:37 Temp 97.5 Pulse 92 Resp 18 B/P (MAP) 144/90 (108) Pulse Ox 97 O2 Delivery Room Air Capillary Refill : Less Than 3 Seconds Height, Weight, BMI Height: 5'6.00" Weight: 210lbs. 0oz. 95.675619tn; 32.3 BMI Method:Stated General Appearance: WD/WN, no apparent distress Respiratory: no respiratory distress, no accessory muscle use Gastrointestinal: normal bowel sounds, non tender Hips: bilateral hip non-tender, bilateral hip normal inspection, bilateral hip normal range of motion Legs: bilateral leg non-tender, bilateral leg normal inspection, bilateral leg normal range of motion Knees: bilateral knee non-tender, bilateral knee normal inspection, bilateral knee normal range of motion Ankles: bilateral ankle non-tender, bilateral ankle normal inspection, bilateral ankle normal range of motion Feet: left foot other (there is a 3 x 4 mm moist beefy red area of tissue to the lateral aspect of the ingrown left great toenail. This has some serous fluid around it. Suspect pyogenic granuloma ) Neurologic/Psychiatric: alert, normal mood/affect, oriented x 3 Skin: normal color, warm/dry Progress/Results/Core Measures Results/Orders My Orders Orders - IRVIN COOLEY APRN Cephalexin Capsule (Keflex Capsule) (12/18/18 22:00) Rx-Hydrocodone/Apap 5-325 Mg (Rx-Vicodin (12/18/18 22:00) Lidocaine 1% Inj 20 Ml (Xylocaine 1% Inj (12/18/18 22:00) Bupivacaine 0.5% Injection (Sensorcaine (12/18/18 22:00) Medications Given in ED Current Medications Medications Dose Ordered Sig/Terrell Route Start Time Stop Time Status Last Admin Dose Admin Bupivacaine HCl 30 ml ONCE ONCE INJ 12/18/18 22:00 12/18/18 22:01 DC 12/18/18 22:01 30 ML Lidocaine HCl 20 ml ONCE ONCE INJ 12/18/18 22:00 12/18/18 22:01 DC 12/18/18 22:02 20 ML Vital Signs/I&O 12/18/18 19:37 Temp 97.5 Pulse 92 Resp 18 B/P (MAP) 144/90 (108) Pulse Ox 97 O2 Delivery Room Air Blood Pressure Mean: 108 Departure Communication (Admissions) 2026-digital block was done using 5 mL of 1% lidocaine without epinephrine 4 mL of 0.5% bupivacaine without epinephrine. This was lab work for about 10 minutes, since the toe was scrubbed with a Swabs which was allowed to dry. The lateral third of the great toenail was lifted off of the nail bed using needle drivers and was trimmed off. The area of tissue overgrowth of suspected pyogenic granuloma was also debrided off as well. This was then cauterized with silver nitrate, wrapped with Xeroform gauze and Coban. Impression Primary Impression: Pyogenic granuloma of skin Additional Impression: Ingrown toenail Disposition: 01 HOME, SELF-CARE Condition: Stable Departure-Patient Inst. Decision time for Depature: 21:57 Referrals: SHANE ALLEN DO (PCP/Family) Primary Care Physician Patient Instructions: Ingrown Toenail Removal Add. Discharge Instructions: 1. Antibiotics as directed 2. Tylenol and Motrin for pain control after the prescribed pain medication runs out. Remove the dressing after 48 hours. You may want to soak this and water before removing the dressing to make it easier to come off. After removing the dressing, simply cover it with a Band-Aid. Scripts Cephalexin (Keflex) 500 Mg Capsule 500 MG PO TID, #15 CAP Prov: IRVIN COOLEY APRN 12/18/18 Work/School Note: Work Release Form Date Seen in the Emergency Department: Dec 18, 2018 Return to Work: Dec 21, 2018 IRVIN COOLEY APRN Dec 18, 2018 22:00
[2018-12-18 22:32] VITALS: BP 136/88
== END 2018-12-18 22:32 | disposition home or self-care (01) ==
LOC: EDUNIT# 19:03 → ER 19:04
DX: L98.0 Pyogenic granuloma (principal); L60.0 Ingrowing nail; J45.909 Unspecified asthma, uncomplicated; G43.909 Migraine, unspecified, not intractable, without status migrainosus; G40.909 Epilepsy, unspecified, not intractable, without status epilepticus; K21.0 Gastro-esophageal reflux disease with esophagitis; M79.7 Fibromyalgia; F41.9 Anxiety disorder, unspecified; Z98.51 Tubal ligation status; Z88.5 Allergy status to narcotic agent; Z98.890 Other specified postprocedural states; Z90.710 Acquired absence of both cervix and uterus
CPT/HCPCS: 11730

== ENCOUNTER → 2019-02-14 | Outpatient (CLI) | payer BC ==
[~2019-02-14] MED LIST changes: +CEPH-507 PO; +FAMO40TA6; +PREG50CA2; +TOPI100T11
--- NOTE | 2019-02-14 15:43 | Diagnostic Imaging Report ---
INDICATION: Left groin pain. Left leg venous Doppler study was performed in the routine fashion with color flow Doppler and waveform analysis. FINDINGS: The left common femoral vein, superficial femoral vein, popliteal vein and visualized portion of the posterior tibial vein show normal compressibility and venous flow patterns. There is normal augmentation. IMPRESSION: No evidence of deep vein thrombosis of the major veins of the left leg. Dictated by: Dictated on workstation # [id number]
--- NOTE | 2019-02-14 15:47 | Diagnostic Imaging Report ---
PROCEDURE: US Non-ob pelvis comp/trans. TECHNIQUE: Multiple realtime grayscale images were obtained of the pelvis in various projections endovaginally. Transabdominal imaging was also performed. INDICATION: Pelvic pain COMPARISON: 07/31/2008 FINDINGS: The uterus is not visualized, consistent with provided history of hysterectomy. The vaginal cuff appears grossly unremarkable. The right ovary was unable to be visualized. What is felt to relate to the left ovary measures 3.4 x 2.9 x 2.7 cm. An anechoic rounded 2 cm cyst is noted within the left ovary. Vascular flow is present within the left ovary. No additional abnormal adnexal mass lesion. No significant free fluid. IMPRESSION: 1. A 2 cm dominant follicle within the left ovary. 2. Hysterectomy. 3. Nonvisualization of the right ovary, though no abnormal right adnexal mass lesion is seen. Dictated by: Dictated on workstation # [id number]
== END ==
LOC: RAD 14:01
PROVIDERS: ATTEND Nurse Practitioner Family
DX: M79.605 Pain in left leg (principal); R10.2 Pelvic and perineal pain; Z90.710 Acquired absence of both cervix and uterus; R10.30 Lower abdominal pain, unspecified
CPT/HCPCS: 76830; 76856

== ENCOUNTER 2019-03-24 05:45 | Outpatient (CLI) | payer BC ==
[~2019-03-24] VITALS: Ht 167 cm; Wt 88.6 kg
[~2019-03-24 05:45] MED LIST changes: -FAMO40TA6; +FAMO40TA6 PO; -TOPI100T11
[2019-03-24] MEDS ORDERED: GABA-490 PO (14:39)
== END 2019-03-24 14:50 | disposition home or self-care (01) ==
LOC: PREOP 05:45
PROVIDERS: ATTEND Surgery
DX: Z01.818 Encounter for other preprocedural examination (principal)

== ENCOUNTER 2019-03-31 10:12 | Day surgery (SDC) | payer BC ==
--- NOTE | 2019-03-23 04:17 | HISTORY AND PHYSICAL ---
DATE OF SERVICE: ATTENDING PHYSICIAN: Annie Mott DO. PROCEDURE DATE: 03/31/2019. HISTORY OF PRESENT ILLNESS: The patient is a 48-year-old female who is known to us. She was seen by us in 2017 for episodes of dysphagia as well as a reflux. At that time, she did undergo an EGD with biopsy and balloon dilatation. She was found to have severe reflux esophagitis, class C, mild distal esophageal stricture. There is no significant hiatal hernia. There was mild to moderate gastritis, but no formal ulcers, polyps or any neoplasms. Pylorus and duodenum appeared normal. No distal obstructions. Biopsies were negative for any H. pylori as well as negative for any Arias esophagus. The patient was then seen in the office on 03/15/2019, for complaints of left inguinal pain. The patient reports that this had been going on for approximately last month and was intermittent. She reports that when the pain would occur that would be sharp and severe and at times would double her over. She reports that she did feel like there was a palpable lump or bulge in the left inguinal region. She denies any diarrhea or constipation as well as no fever or chills. She was seen by her primary care physician where it was thought that this was some arthritis and was started on a medication; however, this continued. She then had a pelvic transvaginal ultrasound ordered, which did show a 2 cm dominant follicle within the left ovary; however, was otherwise unremarkable. 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 She reports that when the pain does occur that it does feel like it radiate a little bit down her left thigh. She reports that she felt like this hurt more with movement. PAST MEDICAL HISTORY: Seizures, fibromyalgia, arthritis, hypoglycemia. PAST SURGICAL HISTORY: Partial hysterectomy in 1999, laparoscopic cholecystectomy and umbilical hernia repair in 2005. ALLERGIES: MORPHINE. MEDICATIONS: Meloxicam, gabapentin, and nortriptyline. SOCIAL HISTORY: Negative for smoking, negative for alcohol. FAMILY HISTORY: Maternal grandfather, myocardial infarction. Vital signs - blood pressure is 130/90. Current weight is 187.3, height 5 feet 6. REVIEW OF SYSTEMS: A well-nourished female, in no acute distress. She is not experiencing any shortness of breath or difficulty breathing. No chest pain, palpitations or diaphoresis. No nausea or vomiting. She does report pain in the left inguinal region. No diarrhea or constipation. No red blood per rectum, no dark tarry stools. No fever or chills. No recent overt weight loss. All other review of systems is negative. PHYSICAL EXAMINATION: CHEST: Clear. Good breath sounds bilaterally. HEART: Regular, no murmurs. EXTREMITIES: No lower extremity edema. Negative Homans sign. HEENT: No scleral icterus. No cervical lymphadenopathy. ABDOMEN: Soft, nondistended. With patient performing Valsalva maneuver, there is a palpable bulge in the left inguinal region, which is painful to palpation; however, reducible and does appear to be consistent with a left inguinal hernia. SKIN: Warm, dry and pink. NEUROLOGIC: Awake, alert, oriented x3. ASSESSMENT AND PLAN: A 48-year-old female with a symptomatic left reducible inguinal hernia. At this time, we will recommend proceeding with a laparoscopic left inguinal hernia repair with mesh. The risks and benefits of the procedure as well as the procedure and home care instructions were explained to the patient. The patient verbalized understanding of instructions and agrees to proceed as planned. At this time, we will proceed with scheduling the patient for a laparoscopic left inguinal hernia repair with mesh. Job ID: [id number] DocumentID: [id number] Dictated Date: 03/16/2019 14:13:12 Rug Designer Date: 03/16/2019 15:05:53 Dictated By: SCOUT RODRIGUEZ APRN
[2019-03-31] VITALS (13 sets, daily range): BP systolic 88–138; BP diastolic 54–88
[~2019-03-31] VITALS: Ht 167 cm; Wt 88.6 kg
[~2019-03-31 10:12] MED LIST changes: +GABA-490 PO
--- NOTE | 2019-03-31 10:27 | Progress Note-Pre Operative ---
Pre-Operative Progress Note H&P Reviewed The H&P was reviewed, patient examined and no changes noted. Date Seen by Provider: Mar 31, 2019 Time Seen by Provider: 10:00 Date H&P Reviewed: Mar 31, 2019 Time H&P Reviewed: 10:00 Pre-Operative Diagnosis: sx reducible left ing hernia TC PEREZ MD Mar 31, 2019 10:27 POS
[2019-03-31] MEDS ORDERED: fentaNYL INJECTION 100 MCG/2 ML AMP IVP PRN (10:30)
[2019-03-31] MEDS ORDERED: HYDR-34 PO (10:30)
[2019-03-31] MEDS ORDERED: ONDANSETRON 4 MG/2 ML (SDV) Z0FRAN IVP PRN ×2 (10:30→15:00)
[2019-03-31] MEDS ORDERED: ACETAMINOPHEN 325 MG TABLET PO PRN (10:30)
--- NOTE | 2019-03-31 10:30 | Discharge Inst-Surgical ---
D/C Lap Instructions-ANA New, Converted, or Re-Newed RX: RX on Chart Follow Up Appt in 2 weeks Activity as tolerated No driving for 24 hours No driving while on pain medications Incentive Spirometry use every 2 hours while awake Regular Diet Symptoms to Report: Fever over 101 degree F, Nausea/Vomiting Infection Signs and Symptoms to report: Increased redness, Foul odor of wound, Increased drainage Bathing instructions: May shower Operative Area Clean/Dry; Keep incision clean/dry If any problems/questions: Contact your physician or go to Emergency Room TC PEREZ MD Mar 31, 2019 10:30 POS
[2019-03-31] MEDS ORDERED: ceFAZolin 2 GM/50 ML NS 50 ML ONE (10:58)
[2019-03-31] MEDS: LACTATED RINGERS 1,000 ML IV PRN ×2 (10:59→14:42)
[2019-03-31] MEDS ORDERED: ceFAZolin 2 GM/50 ML NS 50 ML IV ONE (11:00)
[2019-03-31] MEDS ORDERED: fentaNYL INJECTION 100 MCG/2 ML AMP ONE (11:48)
[2019-03-31] MEDS ORDERED: proPOfol 200 MG/20 ML (DIPRIVAN) VIAL IV ONE (11:48)
[2019-03-31] MEDS ORDERED: DEXAMETHASONE 10 MG/ML (DECADRON) 1 ML VIAL ONE (11:48)
[2019-03-31] MEDS ORDERED: LIDOCAINE PF 2% 5 ML (XYLOCAINE) VIAL ONE (11:48)
[2019-03-31] MEDS ORDERED: MIDAZOLAM 2 MG/2 ML (VERSED) VIAL ONE (11:48)
[2019-03-31] MEDS ORDERED: ONDANSETRON 4 MG/2 ML (SDV) Z0FRAN ONE (11:48)
[2019-03-31] MEDS ORDERED: ROCURONIUM 10 MG/ML 5 ML SYRINGE IV ONE (11:48)
[2019-03-31] MEDS ORDERED: BUP/EPI 0.5% 1:200,000 (SENSORCAINE) 30 ML VIAL ONE (12:09)
[2019-03-31] MEDS ORDERED: SEVOFLURANE (ULTANE) 15 ML INHAL SOLN ONE ×3 (14:36→14:42)
[2019-03-31] MEDS ORDERED: PHENYLEPHRINE 100 MCG/ML 10 ML (ANESTHESIA) SYR ONE (14:38)
[2019-03-31] MEDS ORDERED: NEOSTIGMINE 3 MG/3 ML VIAL ONE (14:38)
[2019-03-31] MEDS ORDERED: GLYCOPYRROLATE 0.2 MG/ML (ROBINUL) 2 ML VIAL ONE (14:38)
--- NOTE | 2019-03-31 14:58 | Anesthesia-General Post-Op ---
General Patient Condition Mental Status/LOC: Same as Preop Cardiovascular: Satisfactory Nausea/Vomiting: Absent Respiratory: Satisfactory Pain: Controlled Complications: Absent Post Op Complications Complications None Follow Up Care/Instructions Patient Instructions None needed. Anesthesia/Patient Condition Patient Condition Patient is doing well, no complaints, stable vital signs, no apparent adverse anesthesia problems. No complications reported per nursing. TIMO LEVINE CRNA Mar 31, 2019 14:58 POS
--- NOTE | 2019-03-31 14:59 | Progress Note-Post Operative ---
Post-Operative Progess Note Surgeon (s)/Stagecraft Professor (s) Surgeon TC PEREZ MD Stagecraft Professor: estela anthony STILL OPERATOR GIN Pre-Operative Diagnosis sx reducible left ing hernia Post-Operative Diagnosis sx reducible left indirect ing hernia, left ovarian follicle Procedure & Operative Findings Date of Procedure 03/31/19 Procedure Performed/Findings laparoscopic left inguinal hernia repair with mesh. Anesthesia Type get Estimated Blood Loss Estimated blood loss (mL): minimal Specimens/Packing Specimens Removed none TC PEREZ MD Mar 31, 2019 14:59 POS
[2019-03-31] MEDS ORDERED: MEPERIDINE (DEMEROL) INJ 50 MG/ML IVP ONE (15:00)
[2019-03-31] MEDS ORDERED: fentaNYL INJECTION 100 MCG/2 ML AMP IVP ONE (15:00)
[2019-03-31] MEDS ORDERED: HYDROmorphone 2 MG/ML VIAL (DILAUDID) IV ONE (15:00)
[2019-03-31] MEDS ORDERED: PROMETHAZINE INJ 25 MG/ML (PHENERGAN) AMP IVP ONE (15:00)
[2019-03-31] MEDS: oxyCODONE/APAP 5/325MG (PERCOCET 5) TABLET PO PRN ×2 (16:42→17:31)
--- NOTE | 2019-03-31 22:32 | OPERATIVE REPORT ---
DATE OF SERVICE: 03/31/2019 ATTENDING PRIMARY CARE PHYSICIAN: Annie Mott DO PREOPERATIVE DIAGNOSIS: Symptomatic reducible left inguinal hernia. POSTOPERATIVE DIAGNOSIS: Symptomatic indirect left inguinal hernia. There appeared to be a dominant follicle of the left ovary. Similar finding was identified on transvaginal ultrasound. PROCEDURE: Laparoscopic left inguinal hernia repair with mesh. SURGEON: Tc Perez MD. FERTILIZER PROCESSING SUPERVISOR: Scot Nguyễn APRN. ANESTHESIA: General endotracheal. ESTIMATED BLOOD LOSS: Minimal. FINDINGS: Small left indirect inguinal hernia with preperitoneal fat within the defect. DISPOSITION: The patient tolerated the procedure well. INDICATIONS: The patient is a 48-year-old female, who developed pain in the left groin region approximately two months ago. She reports that she was doing lifting at that time at work. She reports since that time, she has felt a significant amount of pain in the left inguinal region as well as a palpable bulge at times. She was examined in the office and found to have a reducible left inguinal hernia; however, tender to palpation. She is otherwise eating well and having normal bowel movements. DESCRIPTION OF PROCEDURE: The patient was brought to the operating room, laid supine on the table. After adequate IV pain and sedative medications and general endotracheal intubation, the abdomen was prepped and draped in standard surgical fashion. A 0.5% Marcaine with epinephrine was used to anesthetize the overlying skin in the left upper abdominal quadrant and transverse skin incision made using a 15 blade. An 0 silk suture was applied to the medial aspect of the incision for retraction and a Veress needle inserted with a low opening pressure of 0 mmHg and the abdomen was then insufflated to 15 mmHg pressure. The Veress needle removed and a 5 mm XL trocar placed followed by a 5 mm 45-degree angle laparoscope visualizing the peritoneal cavity. A 4-quadrant abdominal exploration was performed. It appears the patient is status post hysterectomy, both ovaries were identified, both ovaries having small cysts. There also appeared to be a follicle of the right ovary, which was consistent with findings on the transvaginal ultrasound. A small left indirect inguinal hernia was identified. No right inguinal hernia component. Under direct visualization, we then proceeded to place bilateral 5 mm ports after the skin and peritoneal lining were anesthetized using 0.5% Marcaine with epinephrine and a transverse skin incision made using 15 blade. The patient was then placed in Trendelenburg position. The peritoneal lining was then opened laterally towards conjoined tendon and inguinal ligament. We then proceeded medially towards Roscoe's ligament. We then proceeded with inferior dissection encompassing the hernia sac as well as preperitoneal fat that was also within the defect. Good hemostasis was observed. A medium sized 3DMax polypropylene mesh was then placed into the peritoneal cavity through the 10 mm port and the mesh tacked to Roscoe's ligament medially using absorbable tacks and to the conjoined tendon laterally. The peritoneal lining was then placed over the mesh and a few absorbable tacks placed to keep this in place with visualization of good hemostasis. The 10 mm port site fascia and peritoneum were then closed under direct visualization using a Lauri-Yajaira device and 0 Vicryl suture. The abdomen was then desufflated and remaining ports removed. All skin incisions were closed using 4-0 Monocryl running subcuticular sutures. Wounds were then cleaned and covered with Dermabond. The patient tolerated the procedure well. We will start IV and oral pain medication as well as a clear liquid diet. Once she is tolerating clears, has good pain control with oral pain medications, ambulating well, we will discharge her home. She will be instructed to do no heavy lifting or exertion, especially for the first 2 weeks, then slowly incorporate some more activity; however, she needs a total of 6 weeks for total incorporation of the mesh and 100% tensile strength before proceeding with heavy lifting and exertion. Job ID: [id number] DocumentID: [id number] Dictated Date: 03/31/2019 15:08:42 Stile Ripsaw Operator Date: 03/31/2019 22:31:14 Dictated By: TC PEREZ MD [facility]
== END 2019-03-31 18:40 | disposition home or self-care (01) ==
LOC: SDC 10:12
PROVIDERS: ATTEND Surgery
DX: K40.90 Unilateral inguinal hernia, without obstruction or gangrene, not specified as recurrent (principal); M19.90 Unspecified osteoarthritis, unspecified site
CPT/HCPCS: 87081

== ENCOUNTER → 2019-05-13 | Outpatient (CLI) | payer BC ==
[~2019-05-13] MED LIST changes: +HYDR-34 PO; -NORT10CA PO; +NRT10C PO; -TRAM50TA2 PO
--- NOTE | 2019-05-13 17:12 | Diagnostic Imaging Report ---
CLINICAL INDICATION: Patient with knee pain from left buttock to left knee. Patient has difficulty bending knee. Exam: X-ray of the left knee, 3 views. COMPARISON: None. FINDINGS: There is hypertrophic patellar spurring at the patellar ligament attachment. There is hypertrophic spurring involving the tibial tuberosity at the patellar ligament attachment. There are small spurs involving the patellofemoral compartment. There is no significant knee effusion. There is no acute fracture or dislocation. IMPRESSION: 1: There is no acute fracture or dislocation. 2: There is degenerative disease of the left knee, as described above. Dictated by: Dictated on workstation # [id number]
--- NOTE | 2019-05-13 17:27 | Diagnostic Imaging Report ---
CLINICAL INDICATION: Patient with pain from left buttock to left knee with difficulty bending knee. EXAMS: 1: X-ray of the lumbar spine, three views. 2: X-ray of the sacroiliac joints, three views. COMPARISON: None. FINDINGS: Lumbar spine x-rays: Lumbar spine shows no acute fracture or dislocation. Lumbar spine is normal in alignment. There are mild hypertrophic spurs involving the mid to lower lumbar spine. There is hbxqmtmj-ll-oczbpj loss of intervertebral disc height at the L5-S1 level. There is mild loss of intervertebral disc height at the L4-L5 level. There is lower lumbar spine facet arthropathy. Surgical clips are seen overlying the right upper quadrant which could be related to cholecystectomy changes. Sacroiliac joint X-rays: Sacroiliac joints show minimal anterior spurring on the left. There are no significant bony erosions or sclerosis seen. Sacral bony structures show no significant abnormality. IMPRESSION: 1: There is lumbar spine degenerative disease which is worse at the L5-S1 level. There is qhbtjjkg-qe-xwyfxy loss of intervertebral disc height at the L5-S1 level. MRI of the lumbar spine would better evaluate for disc disease. 2: Sacroiliac joints show minimal spurring on the left, but are otherwise unremarkable. Dictated by: Dictated on workstation # [id number]
--- NOTE | 2019-05-13 17:34 | Diagnostic Imaging Report ---
CLINICAL INDICATION: Patient with pain from left buttock to left knee with difficulty bending knee. EXAMS: 1: X-ray of the lumbar spine, three views. 2: X-ray of the sacroiliac joints, three views. COMPARISON: None. FINDINGS: Lumbar spine x-rays: Lumbar spine shows no acute fracture or dislocation. Lumbar spine is normal in alignment. There are mild hypertrophic spurs involving the mid to lower lumbar spine. There is oovelfbf-pj-vsdktp loss of intervertebral disc height at the L5-S1 level. There is mild loss of intervertebral disc height at the L4-L5 level. There is lower lumbar spine facet arthropathy. Surgical clips are seen overlying the right upper quadrant which could be related to cholecystectomy changes. Sacroiliac joint X-rays: Sacroiliac joints show minimal anterior spurring on the left. There are no significant bony erosions or sclerosis seen. Sacral bony structures show no significant abnormality. IMPRESSION: 1: There is lumbar spine degenerative disease which is worse at the L5-S1 level. There is lugdeqmy-fb-goerep loss of intervertebral disc height at the L5-S1 level. MRI of the lumbar spine would better evaluate for disc disease. 2: Sacroiliac joints show minimal spurring on the left, but are otherwise unremarkable. Dictated by: Dictated on workstation # [id number]
== END ==
LOC: RAD 14:33
PROVIDERS: ATTEND Family Medicine
DX: M17.12 Unilateral primary osteoarthritis, left knee (principal); M79.672 Pain in left foot; M47.817 Spondylosis without myelopathy or radiculopathy, lumbosacral region
CPT/HCPCS: 72100; 72202; 73562

== ENCOUNTER → 2019-06-01 | Outpatient (CLI) | payer BC ==
--- NOTE | 2019-06-01 13:38 | Diagnostic Imaging Report ---
EXAMINATION: Magnetic resonance imaging of the left knee without intravenous contrast. DATE: June 01, 2019. COMPARISON: Left knee radiographs May 13, 2019. INDICATION: 48-year-old female, left knee pain x 1 month. TECHNIQUE: Multiplanar, multisequence non contrast enhanced MR imaging was accomplished. FINDINGS: MENISCI: There is an oblique tear involving the anterior horn, body, and posterior horn of the medial meniscus extending into the posterior root attachment of the medial meniscus. There is no medial meniscal extrusion. The lateral meniscus is intact. LIGAMENTS AND TENDONS: The anterior and posterior cruciate ligaments are intact. The medial collateral ligament is intact. The iliotibial band, mid third lateral capsular ligament, fibular collateral ligament, biceps femoris tendon, and conjoined tendon are intact. The quadriceps tendon and patella ligament are intact. JOINT: There is a full-thickness cartilage fissure involving the mid weightbearing portion of the medial tibial plateau cartilage. The additional articular cartilage is intact. There is no knee joint effusion, prominent synovitis, or intra-articular body. BONE: There is edema-like signal involving the medial aspect of the medial tibial plateau without identified fracture line, most likely relating to a small bone contusion. There is no acute fracture. Additional bone marrow signal evaluation is grossly unremarkable. BURSAE AND SOFT TISSUES: There is no Foley's cyst. There is subcutaneous edema superficial to the site of bone contusion, most likely reflecting a soft tissue contusion. IMPRESSION: 1. Oblique tear involving the anterior horn, body, posterior horn, and extending into the posterior root attachment of the medial meniscus. 2. Low-grade bone contusion involving the medial aspect of the medial tibial plateau. 3. Intact anterior and posterior cruciate ligaments. Additional ligaments and tendons are intact. 4. Full-thickness cartilage fissure of the medial tibial plateau. The additional articular cartilage is intact. No knee joint effusion. Dictated by: Dictated on workstation # [id number]
== END ==
LOC: RAD 09:37
PROVIDERS: ATTEND Nurse Practitioner
DX: S83.242A Other tear of medial meniscus, current injury, left knee, initial encounter (principal); S80.02XA Contusion of left knee, initial encounter; X58.XXXA Exposure to other specified factors, initial encounter
CPT/HCPCS: 73721

== ENCOUNTER 2020-01-11 11:09 | Outpatient (RCR) | payer BC | END 2020-01-11 13:19 | disposition home or self-care (01) | PROVIDERS: ATTEND Family Medicine | DX: M51.27 Other intervertebral disc displacement, lumbosacral region (principal); R56.9 Unspecified convulsions; R51 Headache; Z86.001 Personal history of in-situ neoplasm of cervix uteri; Z91.09 Other allergy status, other than to drugs and biological substances ==

== ENCOUNTER 2020-09-01 20:26 | Emergency (ER) | payer BC ==
[~2020-09-01] VITALS: Ht 167 cm; Wt 90.9 kg
[2020-09-01] MEDS ORDERED: METH4TAB PO (22:44)
--- NOTE | 2020-09-01 22:44 | ED Lower Extremity ---
General Chief Complaint: Lower Extremity Stated Complaint: L KNEE PAIN / SWELLING Nursing Triage Note: pt states chronic l knee pain and swelling that has been worsening over the last few months, states she had steriod shot a few months ago that did help but pain has been worse lately Nursing Sepsis Screen: No Definite Risk Allergies and Home Medications Allergies Coded Allergies: morphine (Verified Allergy, Severe, HALLUCINATIONS/ITCHING, 03/31/19) PATIENT HAS RECEIVED LORTAB AND HYDROMORPHONE IN THE PAST Home Medications Famotidine 40 Mg Tablet, 40 MG PO DAILY, (Reported) Gabapentin 400 Mg Capsule, 400 MG PO HS, (Reported) Hydrocodone Bit/Acetaminophen 1 Ea Tablet, 1 EACH PO Q4H PRN for PAIN-MODERATE Prescribed by: TC PEREZ on 03/31/19 1030 Meloxicam 15 Mg Tablet, 15 MG PO DAILY, (Reported) Methylprednisolone 4 Mg Tab.ds.pk, 4 MG PO UD PER DOSE PACK INSTRUCTIONS Prescribed by: GAVIN BISWAS on 09/01/20 2244 Nortriptyline HCl 10 Mg Capsule, 10 MG PO HS, (Reported) Topiramate 100 Mg Tablet, 100 MG PO DAILY, (Reported) Past Stkheyh-Smwzpa-Dceohp Hx Patient Social History Alcohol Use: Denies Use Smoking Status: Never a Smoker Former Smoker, Quit: Mar 24, 1990 2nd Hand Smoke Exposure: Yes Recent Infectious Disease Expo: No Recent Hopitalizations: No Immunizations Up To Date Tetanus Booster (TDap): Unknown Seasonal Allergies Seasonal Allergies: Yes Past Medical History Surgeries: Yes (RIGHT LEG ORTHO SURGERY CHILD, [facility] HERNIA; HYST/OVARIES INTACT; EGD) Gallbladder, Hysterectomy, Orthopedic Respiratory: Yes Asthma Currently Using CPAP: No Currently Using BIPAP: No Cardiac: No Neurological: Yes (PSEUDOSEIZURES- does not remember last seizure) Headaches /Migraines, Neuropathy, Seizure Disorder Reproductive Disorders: No 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, 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 Sexually Transmitted Disease: No HIV/AIDS: No Genitourinary: No Gastrointestinal: Yes Gastroesophageal Reflux, Esophagitis, Hiatal Hernia Musculoskeletal: Yes (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) Arthritis, Fibromyalgia Endocrine: Yes (hypoglycemia) HEENT: No (GLASSES) Loss of Vision: Denies Hearing Impairment: Denies Cancer: No Psychosocial: Yes Pseudo Seizures, Anxiety Integumentary: No Blood Disorders: No Adverse Reaction/Blood Tranf: No (HAS HAD BLOOD WITH NO REACTION) Family Medical History Alcoholism 19 FATHER Asthma G8 BROTHER Myocardial infarction (MATERNAL GRANDFATHER [place]) No Pertinent Family Hx Physical Exam Vital Signs Vital Signs - First Documented 09/01/20 21:21 Temp 36.2 Pulse 73 Resp 18 B/P (MAP) 152/70 (97) Pulse Ox 98 Capillary Refill : Less Than 3 Seconds Height, Weight, BMI Height: 5'6.00" Weight: 210lbs. 0oz. 95.875805dq; 32.00 BMI Method:Stated Progress/Results/Core Measures Results/Orders My Orders Orders - GAVIN BISWAS DO Ct Extremity Lower Left Wo (09/01/20 21:19) Prednisone Tablet (Deltasone Tablet) (09/01/20 22:45) Vital Signs/I&O 09/01/20 21:21 Temp 36.2 Pulse 73 Resp 18 B/P (MAP) 152/70 (97) Pulse Ox 98 Blood Pressure Mean: 97 Departure Impression Primary Impression: Pain and swelling of left knee Additional Impression: EXACERBATION OF CHRONIC LEFT KNEE PAIN Disposition: 01 HOME, SELF-CARE Condition: Stable Departure-Patient Inst. Decision time for Depature: 22:35 Referrals: SHANE ALLEN DO (PCP) Primary Care Physician KRISTIN SINGH MD Patient Instructions: Knee Pain, Chronic Knee Pain (DC) Add. Discharge Instructions: ANKUR WRAP TO AREA FOR COMFORT ICE TO AREA AT 20 MINUTE INTERVALS ELEVATE LEG MUCH POSSIBLE FOLLOW UP WITH DR. SINGH NEXT WEEK FOR FURTHER CARE All discharge instructions reviewed with patient and/or family. Voiced understanding. Scripts Methylprednisolone (Medrol) 4 Mg Tab.ds.pk 4 MG PO UD for 6 Days, #21 PKG PER DOSE PACK INSTRUCTIONS Prov: GAVIN BISWAS DO 09/01/20 GAVIN BISWAS DO September 01, 2020 22:44
[2020-09-01] MEDS ORDERED: predniSONE 10 MG TAB PO ONE (22:45)
[2020-09-01 22:58] VITALS: BP 152/70
--- NOTE | 2020-09-02 06:26 | Diagnostic Imaging Report ---
PROCEDURE: CT left lower extremity without contrast. TECHNIQUE: Multiple contiguous axial images were obtained through the left lower extremity without the use of intravenous contrast. Sagittal and coronal reformations were then performed. Auto Exposure Controls were utilized during the CT exam to meet ALARA standards for radiation dose reduction. INDICATION: Left knee pain and swelling. There is medial compartmental degenerative change, joint space narrowing and marginal spurring. Mild patellofemoral degenerative changes noted. There is a moderate knee joint effusion. No fracture or dislocation is identified. The soft tissues are unremarkable. IMPRESSION: Degenerative changes with joint effusion. No acute bony abnormality is detected. Dictated by: Dictated on workstation # [id number]
== END 2020-09-01 22:59 | disposition home or self-care (01) ==
LOC: EDUNIT# 20:26 → ER 20:29
DX: M25.462 Effusion, left knee (principal); G89.29 Other chronic pain; J45.909 Unspecified asthma, uncomplicated; K21.00 Gastro-esophageal reflux disease with esophagitis, without bleeding; G43.909 Migraine, unspecified, not intractable, without status migrainosus; G40.909 Epilepsy, unspecified, not intractable, without status epilepticus; M79.7 Fibromyalgia; F41.9 Anxiety disorder, unspecified; G62.9 Polyneuropathy, unspecified; Z87.891 Personal history of nicotine dependence; Z77.22 Contact with and (suspected) exposure to environmental tobacco smoke (acute) (chronic); Z88.5 Allergy status to narcotic agent; Z79.899 Other long term (current) drug therapy
CPT/HCPCS: 73700

== ENCOUNTER → 2020-10-23 | Outpatient (CLI) | payer BC ==
[~2020-10-23] MED LIST changes: +LAMO100T5; +NF-DICLOTA; +SPIR25TA5
[2020-10-23 17:19] LABS: ALBUMIN 4.2 GM/DL (3.2-4.5); CHLORIDE 105 MMOL/L (98-107); POTASSIUM 3.5 MMOL/L (3.6-5.0); SODIUM 140 MMOL/L (135-145)
[2020-10-23 17:21] LABS: CALCIUM 9.1 MG/DL (8.5-10.1)
[2020-10-23 17:22] LABS: GLUCOSE 118 MG/DL (70-105); TOTAL PROTEIN 7.2 GM/DL (6.4-8.2)
[2020-10-23 17:23] LABS: CARBON DIOXIDE 25 MMOL/L (21-32)
[2020-10-23 17:24] LABS: BILIRUBIN,TOTAL 0.3 MG/DL (0.1-1.0)
[2020-10-23 17:25] LABS: ALKALINE PHOSPHATASE 69 U/L (40-136); GFR ESTIMATED > 60
[2020-10-23 17:26] LABS: BUN/CREATININE RATIO 17
[2020-10-23 17:28] LABS: ALANINE AMINOTRANSFERASE 15 U/L (0-55)
[2020-10-23 17:44] LABS: FIBRIN DEGRADATION PRODUCTS <= 0.27 UG/ML (0.00-0.49); PARTIAL THROMBOPLASTIN TIME 31 SEC (24-35)
== END ==
LOC: LAB 16:41
PROVIDERS: ATTEND Family Medicine
DX: R60.0 Localized edema (principal)
CPT/HCPCS: 36415; 80053; 84443; 85379; 85730

== ENCOUNTER 2020-10-25 23:29 | Emergency (ER) | payer BC ==
[~2020-10-25] VITALS: Ht 167 cm; Wt 91.0 kg
[~2020-10-25 23:29] MED LIST changes: -LAMO100T5; -NF-DICLOTA; -SPIR25TA5
[2020-10-25 23:36] VITALS: BP 152/76
[2020-10-25] MEDS ORDERED: SPIR25TA5 (23:41)
[2020-10-25] MEDS ORDERED: NF-DICLOTA (23:41)
[2020-10-25] MEDS ORDERED: LAMO100T5 (23:41)
--- NOTE | 2020-10-26 00:04 | ED Lower Extremity ---
General Chief Complaint: Lower Extremity Stated Complaint: LEGS SWOLLEN Nursing Triage Note: c/o bilateral foot tingling/swelling. seen by pcp for same. started on spirolactone. Source: patient Exam Limitations: no limitations History of Present Illness Date Seen by Provider: Oct 25, 2020 Time Seen by Provider: 23:42 Initial Comments Patient presents ER by private conveyance with chief complaint she is had swelling for the past 3 days in bilateral lower extremities. She works on her feet at [employer]. She has not had any new medicines for the past 20 years. She i s being treated for pseudoseizures but denies being on calcium channel blockers. She has not had any recent illness. She went to her doctor twice for this and was sent to a orthopedic surgeon at [place] who told her she had no arthritis in her left knee and injected her knee yesterday. Today she noticed the swelling is gone however she had some plumpness of the veins in her feet which she thought was new so she decided to present to the ER. She is not having any chest pain, shortness of air, fever chills cough erythema or swelling. She does have compression stockings that she obtained years ago for swelling but she has not tried wearing them. Allergies and Home Medications Allergies Coded Allergies: morphine (Verified Allergy, Severe, HALLUCINATIONS/ITCHING, 03/31/19) PATIENT HAS RECEIVED LORTAB AND HYDROMORPHONE IN THE PAST Home Medications Famotidine 40 Mg Tablet, 40 MG PO DAILY, (Reported) Last Action: Last Taken Edited Gabapentin 400 Mg Capsule, 400 MG PO HS, (Reported) Last Action: Last Taken Edited Topiramate 100 Mg Tablet, 100 MG PO DAILY, (Reported) Last Action: Last Taken Edited Patient Home Medication List Home Medication List Reviewed: Yes Review of Systems Constitutional: No chills, No diaphoresis EENTM: No ear discharge, No ear pain Respiratory: No cough, No phlegm Cardiovascular: No chest pain, No palpitations Gastrointestinal: No abdominal pain, No nausea, No vomiting Genitourinary: No discharge, No dysuria Musculoskeletal: No back pain, No joint pain All Other Systems Reviewed Negative Unless Noted: Yes Past Eoqhfmz-Bxifys-Jqadgo Hx Patient Social History Tobacco Use?: No Use of E-Cig and/or Vaping dev: No Substance use?: No Alcohol Use?: No Pt feels they are or have been: No Immunizations Up To Date Tetanus Booster (TDap): Unknown Seasonal Allergies Seasonal Allergies: Yes Past Medical History Surgeries: Yes (RIGHT LEG ORTHO SURGERY CHILD, [facility] HERNIA; HYST/OVARIES INTACT; EGD) Abdominal, Gallbladder, Hysterectomy, Orthopedic Respiratory: Yes Asthma Currently Using CPAP: No Currently Using BIPAP: No Cardiac: No Neurological: Yes (PSEUDOSEIZURES- does not remember last seizure) Headaches /Migraines, Neuropathy, Seizure Disorder 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, 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 Sexually Transmitted Disease: No HIV/AIDS: No Genitourinary: No Gastrointestinal: Yes (S/P CHOLECYSTECTOMY) Gastroesophageal Reflux, Esophagitis, Hiatal Hernia, Gall Bladder Disease Musculoskeletal: Yes (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;RIGHT LEG SURGERY CHILD FOR UNKNOWN REASON) Arthritis, Fibromyalgia Endocrine: Yes (hypoglycemia) HEENT: No (GLASSES) Loss of Vision: Denies Hearing Impairment: Denies Cancer: No Psychosocial: Yes Pseudo Seizures, Anxiety Integumentary: No Blood Disorders: No Adverse Reaction/Blood Tranf: No (HAS HAD BLOOD WITH NO REACTION) Family Medical History Alcoholism 19 FATHER Asthma G8 BROTHER Myocardial infarction (MATERNAL GRANDFATHER [place]) No Pertinent Family Hx Physical Exam Vital Signs Vital Signs - First Documented 10/25/20 23:36 Temp 36.4 Pulse 74 Resp 18 B/P (MAP) 152/76 (101) Pulse Ox 97 O2 Delivery Room Air Capillary Refill : Less Than 3 Seconds Height, Weight, BMI Height: 5'6.00" Weight: 210lbs. 0oz. 95.021793eq; 32.00 BMI Method:Stated General Appearance: WD/WN, no apparent distress HEENT: PERRL/EOMI, normal ENT inspection, pharynx normal Neck: full range of motion, normal inspection Cardiovascular: normal peripheral pulses, regular rate, rhythm, no edema, no murmur Respiratory: chest non-tender, lungs clear, normal breath sounds, no respiratory distress, no accessory muscle use Gastrointestinal: normal bowel sounds, non tender, soft Ankles: bilateral ankle non-tender, bilateral ankle normal inspection, bilateral ankle normal range of motion, bilateral ankle no evidence of injury Feet: bilateral foot non-tender, bilateral foot normal inspection, bilateral foot normal range of motion, bilateral foot no evidence of injury Neurologic/Psychiatric: no motor/sensory deficits, alert, normal mood/affect, oriented x 3 Skin: normal color, warm/dry Progress/Results/Core Measures Results/Orders Vital Signs/I&O 10/25/20 23:36 Temp 36.4 Pulse 74 Resp 18 B/P (MAP) 152/76 (101) Pulse Ox 97 O2 Delivery Room Air Blood Pressure Mean: 101 Progress Progress Note : Time: 00:12 Progress Note While the patient is insistent she is having swelling presently she says it is much less than before. It seemed to get better after the dose of steroids with her knee injection. This provider cannot find any evidence of edema or swelling in her feet and she certainly does not have any pitting edema. She may have had it before. 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 Return precautions were given Departure Impression Primary Impression: Dependent edema Disposition: 01 HOME, SELF-CARE Condition: Stable Departure-Patient Inst. Decision time for Depature: 00:13 Referrals: SHANE ALLEN DO (PCP/Family) Primary Care Physician Patient Instructions: Dependent Edema (DC) Add. Discharge Instructions: Wear your compression stockings while on your feet. When not on your feet try to prop her legs up to help reduce the swelling. Avoid high sodium diet. Follow-up in 1 to 2 weeks with your primary care doctor if you are not seeing improvement. All discharge instructions reviewed with patient and/or family. Voiced understanding. TERI CHRISTIANSON Oct 26, 2020 00:04
== END 2020-10-26 00:20 | disposition home or self-care (01) ==
LOC: EDUNIT# 23:29 → ER 23:32
DX: R60.9 Edema, unspecified (principal); J45.909 Unspecified asthma, uncomplicated; K21.9 Gastro-esophageal reflux disease without esophagitis; G40.909 Epilepsy, unspecified, not intractable, without status epilepticus; Z79.899 Other long term (current) drug therapy
CPT/HCPCS: 99283

== ENCOUNTER → 2021-02-27 | Outpatient (CLI) | payer BC ==
[~2021-02-27] MED LIST changes: +LAMO100T5; +NF-DICLOTA; +SPIR25TA5; -SULF1TAB35 PO
[2021-02-27 12:05] LABS: BASOPHILS # (AUTO) 0.1 10^3/uL (0.0-0.1); BASOPHILS % (AUTO) 1 % (0-10); EOSINOPHILS # (AUTO) 0.4 10^3/uL (0.0-0.3); EOSINOPHILS % (AUTO) 5 % (0-10); HEMATOCRIT 39 % (35-52); HEMOGLOBIN 13.2 g/dL (11.5-16.0); LYMPHOCYTES # (AUTO) 3.1 10^3/uL (1.0-4.0); LYMPHOCYTES % (AUTO) 35 % (12-44); MEAN CORPUSCULAR HEMOGLOBIN 31 pg (25-34); MEAN CORPUSCULAR HGB CONC 34 g/dL (32-36); MEAN CORPUSCULAR VOLUME 91 fL (80-99); MEAN PLATELET VOLUME 8.7 fL (9.0-12.2); MONOCYTES # (AUTO) 0.5 10^3/uL (0.0-1.0); MONOCYTES % (AUTO) 6 % (0-12); NEUTROPHILS # (AUTO) 4.8 10^3/uL (1.8-7.8); NEUTROPHILS % (AUTO) 54 % (42-75); PLATELET COUNT 361 10^3/uL (130-400); WHITE BLOOD COUNT 8.9 10^3/uL (4.3-11.0)
[2021-02-27 12:35] LABS: BAND NEUTROPHILS 0 %; BASOPHILS % (MANUAL) 1 %; EOSINOPHILS % (MANUAL) 6 %; ERYTHROCYTE SEDIMENTATION RATE 28 MM/HR (0-20); LYMPHOCYTES % (MANUAL) 40 %; MONOCYTES % (MANUAL) 4 %; NEUTROPHILS % (MANUAL) 49 %; RBC MORPH NORMAL
== END ==
LOC: LAB 11:36
PROVIDERS: ATTEND Family Medicine
DX: M79.641 Pain in right hand (principal); M79.89 Other specified soft tissue disorders
CPT/HCPCS: 36415; 84550; 85007; 85027; 85652

== ENCOUNTER → 2021-03-06 | Outpatient (CLI) | payer BC ==
--- NOTE | 2021-03-06 13:03 | Diagnostic Imaging Report ---
Indication: Pain and swelling to the right 2nd finger. TIME OF EXAM: 12:09 PM 3 views of the right hand were obtained. Distal radius and ulna are intact. Carpus appears intact. Metacarpals and phalanges are unremarkable. No fractures are seen. Joint spaces are fairly well-maintained. IMPRESSION: No acute bony abnormality is detected. Dictated by: Dictated on workstation # [id number]
== END ==
LOC: RAD 11:35
PROVIDERS: ATTEND Family Medicine
DX: M79.644 Pain in right finger(s) (principal); M79.641 Pain in right hand; M79.89 Other specified soft tissue disorders
CPT/HCPCS: 73130

== ENCOUNTER → 2021-06-05 | Outpatient (CLI) | payer BC ==
--- NOTE | 2021-06-05 12:32 | Diagnostic Imaging Report ---
PROCEDURE: MR imaging of the brain without contrast. TECHNIQUE: Multiplanar, multisequence MR imaging of the brain was performed without contrast. INDICATION: Headaches, dizziness, history of arachnoid cyst. FINDINGS: The previous MRI brain exam of 02/25/2017 noted a posterior fossa cyst along the posterior aspect of the right cerebellar hemisphere. This cyst paralleled CSF in signal intensity and measured 4.5 x 2.8 cm. This finding was felt to be related to an arachnoid cyst. On this exam, that finding is again evident. The suspected arachnoid cyst now measures 4.4 x 2.7 cm and is virtually unchanged in appearance when compared to the prior exam. The overall appearance of the brain itself is also quite similar to the prior study. There is no solid mass, shift of the midline, or hemorrhage to suggest an acute abnormality. There is no abnormal signal arising from the brain on the diffusion series to indicate an area of acute ischemia. The ventricles are not abnormally dilated and stable in size when compared to the prior exam. There is no signal abnormality arising from the periventricular white matter on the FLAIR series to suggest demyelinating disease. The sella is not enlarged and the expected carotid flow voids are evident bilaterally. The orbits are symmetrical and within normal limits. The sinuses are generally clear. The 7th and 8th nerve complexes are unremarkable. IMPRESSION: 1. The suspected arachnoid cyst along the posterior aspect of the right cerebellar hemisphere seen previously is again evident and does not appear to have changed significantly in size or appearance. 2. There is no acute intracranial abnormality noted. Dictated by: Dictated on workstation # [id number]
== END ==
LOC: RAD 09:30
PROVIDERS: ATTEND Family Medicine
DX: G93.0 Cerebral cysts (principal)
CPT/HCPCS: 70551

== ENCOUNTER 2021-06-16 15:24 | Emergency (ER) | payer BC ==
--- NOTE | 2021-06-16 15:59 | ED Psychosocial ---
General Chief Complaint: Psych/Social Disorder Stated Complaint: PANIC ATTACK Nursing Triage Note: PT TO ER BY [facility] FROM [facility] WITH C/O POSS SEIZURE DUE TO DM. AFTER TALKING WITH PT AND HE STATES SHE HAS RECENTLY BEEN HAVING PANICK ATTACKS WHEN GOING PLACES ALONE. PT DENIES PAIN OR ANY OTHER COMPLAINTS AT THIS TIME Source: family () Exam Limitations: clinical condition History of Present Illness Date Seen by Provider: Jun 16, 2021 Time Seen by Provider: 15:45 Initial Comments Patient is a 50-year-old who presents to the emergency room by ambulance after a "panic attack" while shopping at a local [employer] store. provides the majority of the history as the patient is unable to do this due to her "postictal" post panic state. He states she is often "triggered" by going into stores alone.He relates that she has been having panic attacks over the last several months, she gets confused symptoms last about 15 minutes and then she gets better. She had gone shopping with some family members and when they left she went to the [employer]. He was at [employer]oodoo and was called and notified that she was having a "seizure" or panic attack. Patient is really unable to provide any HPI, review of systems, past medical family or social history as she is "confused". She keeps asking for her who is standing at the bedside. She is unable to tell me where she is or the year. She is able to tell me that she does not drink or do drugs but she says "I need to". And laughs. blood sugar reported as normal at arrival. She states "my head hurts" No recent illnesses. 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 Timing/Duration: just prior to arrival Associated Symptoms: impaired concentration Allergies and Home Medications Allergies Coded Allergies: morphine (Verified Allergy, Severe, HALLUCINATIONS/ITCHING, 03/31/19) PATIENT HAS RECEIVED LORTAB AND HYDROMORPHONE IN THE PAST Patient Home Medication List Home Medication List Reviewed: Yes Diclofenac Sod (Diclofenac Sodium ER) 100 Mg Tab, (Reported) Entered as Reported by: ASHLEY ARCHER on 10/25/20 7361 Famotidine (Famotidine) 40 Mg Tablet, 40 MG PO DAILY, (Reported) Entered as Reported by: ASHLEY ARCHER on 12/18/181942 Gabapentin (Gabapentin) 400 Mg Capsule, 400 MG PO HS, (Reported) Entered as Reported by: TAMARA MAIER on 03/24/19 1439 Lamotrigine (Lamotrigine) 100 Mg Tablet, (Reported) Entered as Reported by: ASHLEY ARCHER on 10/25/202340 Spironolactone (Spironolactone) 25 Mg Tablet, (Reported) Entered as Reported by: ASHLEY ARCHER on 10/25/202340 Topiramate (Topiramate) 100 Mg Tablet, 100 MG PO DAILY, (Reported) Entered as Reported by: ASHLEY ARCHER on 12/18/181942 Review of Systems Constitutional: see HPI EENTM: no symptoms reported Respiratory: no symptoms reported Cardiovascular: no symptoms reported Gastrointestinal: no symptoms reported Genitourinary: no symptoms reported : No Musculoskeletal: no symptoms reported Skin: no symptoms reported Psychiatric/Neurological: Anxiety, Headache All Other Systems Reviewed Negative Unless Noted: Yes Past Ngzkxek-Tfdves-[place] Hx Patient Social History Tobacco Use?: No Substance use?: No Alcohol Use?: No Pt feels they are or have been: No Immunizations Up To Date Tetanus Booster (TDap): Unknown First/Initial COVID19 Vaccinat: DEC 2020 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[employer] Seasonal Allergies Seasonal Allergies: Yes Past Medical History Surgeries: Yes (RIGHT LEG ORTHO SURGERY CHILD, [facility] HERNIA; HYST/OVARIES INTACT; EGD) Abdominal, Gallbladder, Hysterectomy, Orthopedic Respiratory: Yes Asthma Currently Using CPAP: No Currently Using BIPAP: No Cardiac: No Neurological: Yes (PSEUDOSEIZURES- does not remember last seizure) Headaches /Migraines, Neuropathy, Seizure Disorder 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, 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 Sexually Transmitted Disease: No HIV/AIDS: No Genitourinary: No Gastrointestinal: Yes (S/P CHOLECYSTECTOMY) Gastroesophageal Reflux, Esophagitis, Hiatal Hernia, Gall Bladder Disease Musculoskeletal: Yes (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;RIGHT LEG SURGERY CHILD FOR UNKNOWN REASON) Arthritis, Fibromyalgia Endocrine: Yes (hypoglycemia) HEENT: No (GLASSES) Loss of Vision: Denies Hearing Impairment: Denies Cancer: No Psychosocial: Yes Pseudo Seizures, Anxiety Integumentary: No Blood Disorders: No Adverse Reaction/Blood Tranf: No (HAS HAD BLOOD WITH NO REACTION) Family Medical History Alcoholism 19 FATHER Asthma G8 BROTHER Myocardial infarction (MATERNAL GRANDFATHER [place]) No Pertinent Family Hx Physical Exam Vital Signs - First Documented 06/16/21 15:28 Temp 36.3 Pulse 95 Resp 16 B/P (MAP) 125/77 (93) Pulse Ox 99 Capillary Refill : Height, Weight, BMI Height: 5'6.00" Weight: 210lbs. 0oz. 95.861250ut; 32.00 BMI Method:Stated General Appearance: WD/WN, no apparent distress HEENT: PERRL/EOMI, TMs normal, pharynx normal Neck: non-tender, supple, normal inspection Respiratory: lungs clear, normal breath sounds, no respiratory distress, no accessory muscle use Cardiovascular: regular rate, rhythm Extremities: normal range of motion, non-tender, normal inspection, no pedal edema, no calf tenderness Neurologic/Psychiatric: alert, disoriented x 3 (disoriented to location and year and . slow responses initially. she is tracking around the room; noted to be moving all 4 extremities, but having a hard time following commands when I try and assess strength in uppers and lowers.), other (flat affect; dtr's 2+ bilaterl patella) Appearance/Memory: appropriate appearance Behavior/Eye Contact: cooperative, good eye contact Skin: normal color, warm/dry Progress/Results/Core Measures Results/Orders My Orders Orders - ISADORA HOUSER MD Ondansetron Injection (Zofran Injectio (06/16/21 16:00) Acetaminophen Tablet (Tylenol Tablet) (06/16/21 16:00) Medications Given in ED Current Medications Medications Dose Ordered Sig/Terrell Route Start Time Stop Time Status Last Admin Dose Admin Acetaminophen 1,000 mg ONCE ONCE PO 06/16/21 16:00 06/16/21 16:01 DC 06/16/21 16:25 1,000 MG Ondansetron HCl 4 mg ONCE ONCE IVP 06/16/21 16:00 06/16/21 16:01 DC 06/16/21 16:25 4 MG Vital Signs/I&O 06/16/21 15:28 Temp 36.3 Pulse 95 Resp 16 B/P (MAP) 125/77 (93) Pulse Ox 99 2 Blood Pressure Mean: 93 Progress Progress Note : Time: 16:41 Progress Note pqtient reassessed after zofran and tylenol. Feels much better. Now alert and oriented x3.knows she is in the hospital, what year it is, and is able to recognize her . States she would like to go home. Is able to tell me about her medical history and plans for follow up. Departure Impression Primary Impression: Panic attack Additional Impression: Transient alteration of awareness Disposition: 01 HOME, SELF-CARE Condition: Stable Departure-Patient Inst. Decision time for Depature: 16:43 Referrals: SHANE ALLEN DO (PCP/Family) Primary Care Physician Patient Instructions: Anxiety, Adult ED Add. Discharge Instructions: Continue your current medications. Return to the Emergency Department for any new, concerning or emergent symptoms. Keep your follow up with Dr Coronel next month. ISADORA HOUSER MD Jun 16, 2021 15:59
[2021-06-16] MEDS ORDERED: ACETAMINOPHEN 500 MG TAB (TYLENOL) PO ONE (16:00)
[2021-06-16] MEDS ORDERED: ONDANSETRON 4 MG/2 ML (SDV) Z0FRAN IVP ONE (16:00)
[2021-06-16 17:00] VITALS: BP 120/74
== END 2021-06-16 17:04 | disposition home or self-care (01) ==
LOC: EDUNIT# 15:24 → ER 15:26
DX: F41.0 Panic disorder [episodic paroxysmal anxiety] (principal); R40.4 Transient alteration of awareness
CPT/HCPCS: 96374; 99283

== ENCOUNTER 2021-08-21 09:32 | Emergency (ER) | payer BC ==
[~2021-08-21] VITALS: Ht 167 cm; Wt 95.2 kg
--- NOTE | 2021-08-21 10:12 | ED Chest Pain ---
General Chief Complaint: Chest Pain Stated Complaint: CHEST PAIN Nursing Triage Note: PT PRESENTS TO ED VIA POV FROM HOME WITH COMPLAINTS OF L SIDED CP THAT RADIATES TO L SHOULDER THAT STARTED AFTER LIFTING HER GRANDDAUGHTER THIS AM. Source: patient, family () Exam Limitations: no limitations History of Present Illness Date Seen by Provider: August 21, 2021 Time Seen by Provider: 09:58 Initial Comments Patient is a 51-year-old female who presents to the emergency department today with a chief complaint of left-sided sternal chest pain. She states the pain st arted suddenly at about 730 this morning. Her daughter was handing her her granddaughter and she had to lay her down secondary to the onset of the pain. Patient complains of feeling nauseous with the pain, it radiates into her back and down her left arm. She has never had pain like this before. No history of known coronary artery disease, she is never had a stress test. She does not smoke. Patient states that she took a muscle relaxer for the pain but cannot recall what it is. She did have a prolonged car trip about a week ago, drive to [place] of about 11 hours. They did stop frequently. No prior history of blood clot. She does have a slight nonproductive cough. She is not short of breath. Taking a deep breath makes her pain worse. She is quite agitated, holding her breath and grabbing her chest during my examination. Repeating "please tell me it is just a pulled muscle". She is very anxious and agitated. Almost writhing around on the bed. No fevers or chills. No abdominal pain. No problems with bowel or bladder. Allergies to morphine. All other review of systems reviewed and negative except as stated. Timing/Duration: 1-3 hours Severity/Quality: severe, pressure Location: central Radiation: arms (left) Prior CP/Workup: no prior chest pain, no prior cardiac workup Modifying Factors: worse with breathing ASA po MANAGER OF CUSTOMER BILLING: No NTG SL MANAGER OF CUSTOMER BILLING: No Associated Symptoms: nausea/vomiting (nausea without vomiting) Allergies and Home Medications Allergies Coded Allergies: morphine (Verified Allergy, Severe, HALLUCINATIONS/ITCHING, 03/31/19) PATIENT HAS RECEIVED LORTAB AND HYDROMORPHONE IN THE PAST Patient Home Medication List Home Medication List Reviewed: Yes Diclofenac Sod (Diclofenac Sodium ER) 100 Mg Tab, (Reported) Entered as Reported by: ASHLEY ARCHER on 10/25/202340 Famotidine (Famotidine) 40 Mg Tablet, 40 MG PO DAILY, (Reported) Entered as Reported by: ASHLEY ARCHER on 12/18/181942 Gabapentin (Gabapentin) 400 Mg Capsule, 400 MG PO HS, (Reported) Entered as Reported by: TAMARA MAIER on 03/24/19 143 Lamotrigine (Lamotrigine) 100 Mg Tablet, (Reported) Entered as Reported by: ASHLEY ARCHER on 10/25/202340 Spironolactone (Spironolactone) 25 Mg Tablet, (Reported) Entered as Reported by: ASHLEY ARCHER on 10/25/202340 Topiramate (Topiramate) 100 Mg Tablet, 100 MG PO DAILY, (Reported) Entered as Reported by: ASHLEY ARCHER on 12/18/181942 Review of Systems Review of Systems Constitutional: see HPI EENTM: No Symptoms Reported Respiratory: Cough Cardiovascular: Chest Pain Gastrointestinal: Nausea Genitourinary: No Symptoms Reported Musculoskeletal: no symptoms reported Skin: no symptoms reported Psychiatric/Neurological: Anxiety All Other Systems Reviewed Negative Unless Noted: Yes Past Dzdpcbo-Igubxo-Bbuknq Hx Patient Social History Tobacco Use?: No Substance use?: No Alcohol Use?: No Pt feels they are or have been: No Immunizations Up To Date Tetanus Booster (TDap): Unknown First/Initial COVID19 Vaccinat: DEC 2020 Second COVID19 Vaccination Glenn: 06/2021 Third COVID19 Vaccination Date: DEC 2020 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[employer] Seasonal Allergies Seasonal Allergies: Yes Past Medical History Surgery/Hospitalization HX: HX OF SEIZURES FOR 3 YRS Surgeries: Yes (RIGHT LEG ORTHO SURGERY CHILD, [facility] HERNIA; HYST/OVARIES INTACT; EGD) Abdominal, Gallbladder, Hysterectomy, Orthopedic Respiratory: Yes Asthma Currently Using CPAP: No Currently Using BIPAP: No Cardiac: No Neurological: Yes (PSEUDOSEIZURES- does not remember last seizure) Headaches /Migraines, Neuropathy, Seizure Disorder 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, 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 Sexually Transmitted Disease: No HIV/AIDS: No Genitourinary: No Gastrointestinal: Yes (S/P CHOLECYSTECTOMY) Gastroesophageal Reflux, Esophagitis, Hiatal Hernia, Gall Bladder Disease Musculoskeletal: Yes (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;RIGHT LEG SURGERY CHILD FOR UNKNOWN REASON) Arthritis, Fibromyalgia Endocrine: Yes (hypoglycemia) HEENT: No (GLASSES) Loss of Vision: Denies Hearing Impairment: Denies Cancer: No Psychosocial: Yes Pseudo Seizures, Anxiety Integumentary: No Blood Disorders: No Adverse Reaction/Blood Tranf: No (HAS HAD BLOOD WITH NO REACTION) Family Medical History Alcoholism 19 FATHER Asthma G8 BROTHER Myocardial infarction (MATERNAL GRANDFATHER [place]) No Pertinent Family Hx Physical Exam Vital Signs Vital Signs - First Documented 08/21/21 09:35 Temp 35.8 Pulse 93 Resp 18 B/P (MAP) 121/72 (88) Pulse Ox 97 Capillary Refill : Less Than 3 Seconds Height, Weight, BMI Height: 5'6.00" Weight: 210lbs. 0oz. 95.255786kc; 34.00 BMI Method:Stated General Appearance: WD/WN, Anxious, Moderate Distress HEENT: PERRL/EOMI Neck: Normal Inspection Respiratory: Lungs Clear, Normal Breath Sounds, No Accessory Muscle Use, No Respiratory Distress, Other (significant chest wall pain to palpation of sternum - grabbing my hand as I touch the chest wall) Cardiovascular: Regular Rate, Rhythm (90's), Normal Peripheral Pulses Gastrointestinal: Non Tender, Soft Extremity: Normal Capillary Refill, Normal Inspection, Normal Range of Motion, Non Tender, No Calf Tenderness, No Pedal Edema Neurologic/Psychiatric: Alert, Oriented x3, No Motor/Sensory Deficits, Normal Mood/Affect, Other (anxious and agitated) Skin: Normal Color, Warm/Dry Progress/Results/Core Measures Results/Orders Lab Results Laboratory Tests Test 08/21/21 09:45 08/21/21 11:35 Range/Units White Blood Count 9.8 4.3-11.0 10^3/uL Red Blood Count 4.64 3.80-5.11 10^6/uL Hemoglobin 13.7 11.5-16.0 g/dL Hematocrit 41 35-52 % Mean Corpuscular Volume 89 80-99 fL Mean Corpuscular Hemoglobin 30 25-34 pg Mean Corpuscular Hemoglobin Concent 33 32-36 g/dL Red Cell Distribution Width 12.2 10.0-14.5 % Platelet Count 387 130-400 10^3/uL Mean Platelet Volume 9.1 9.0-12.2 fL Immature Granulocyte % (Auto) 1 % Neutrophils (%) (Auto) 52 42-75 % Lymphocytes (%) (Auto) 36 12-44 % Monocytes (%) (Auto) 6 0-12 % Eosinophils (%) (Auto) 5 0-10 % Basophils (%) (Auto) 1 0-10 % Neutrophils # (Auto) 5.1 1.8-7.8 10^3/uL Lymphocytes # (Auto) 3.5 1.0-4.0 10^3/uL Monocytes # (Auto) 0.5 0.0-1.0 10^3/uL Eosinophils # (Auto) 0.5 H 0.0-0.3 10^3/uL Basophils # (Auto) 0.1 0.0-0.1 10^3/uL Immature Granulocyte # (Auto) 0.1 0.0-0.1 10^3/uL Prothrombin Time 13.7 12.2-14.7 SEC INR Comment 1.0 0.8-1.4 Activated Partial Thromboplast Time 37 H 24-35 SEC D-Dimer 0.30 0.00-0.49 UG/ML Sodium Level 139 135-145 MMOL/L Potassium Level 4.1 3.6-5.0 MMOL/L Chloride Level 103 98-107 MMOL/L Carbon Dioxide Level 22 21-32 MMOL/L Anion Gap 14 5-14 MMOL/L Blood Urea Nitrogen 10 7-18 MG/DL Creatinine 0.68 0.60-1.30 MG/DL Estimat Glomerular Filtration Rate 107 BUN/Creatinine Ratio 15 Glucose Level 105 70-105 MG/DL Calcium Level 9.3 8.5-10.1 MG/DL Troponin I < 0.028 < 0.028 <0.028 NG/ML My Orders Orders - ISADORA HOUSER MD Ekg Tracing (08/21/21 09:36) Ed Iv/Invasive Line Start (08/21/21 10:07) Cbc With Automated Diff (08/21/21 10:07) Basic Metabolic Panel (08/21/21 10:07) Troponin I [place] (08/21/21 10:07) Chest 1 View, Ap/Pa Only (08/21/21 10:07) Protime With Inr (08/21/21 10:07) Partial Thromboplastin Time (08/21/21 10:07) Fibrin Degradation Products (08/21/21 10:07) Aspirin Chewable Tablet (Baby Aspirin Ch (08/22/21 09:00) Ketorolac Injection (Toradol Injection) (08/21/21 10:15) Ondansetron Injection (Zofran Injectio (08/21/21 10:15) Aspirin Chewable Tablet (Baby Aspirin Ch (08/21/21 10:17) Orphenadrine Inj (Ed Only) (Norflex Inje (08/21/21 11:15) Troponin I [place] (08/21/21 11:34) Medications Given in ED Current Medications Medications Dose Ordered Sig/Terrell Route Start Time Stop Time Status Last Admin Dose Admin Ketorolac Tromethamine 30 mg ONCE ONCE IVP 08/21/21 10:15 08/21/21 10:16 DC 08/21/21 10:20 30 MG Ondansetron HCl 4 mg ONCE ONCE IVP 08/21/21 10:15 08/21/21 10:16 DC 08/21/21 10:20 4 MG Orphenadrine Citrate 60 mg ONCE ONCE IV 08/21/21 11:15 08/21/21 11:16 DC 08/21/21 11:14 60 MG Vital Signs/I&O 08/21/21 09:35 Temp 35.8 Pulse 93 Resp 18 B/P (MAP) 121/72 (88) Pulse Ox 97 Blood Pressure Mean: 88 Progress Progress Note : Time: 12:15 Progress Note Reassessed patient after medications and second troponin. She states her pain is improved but it comes in "waves". We talked about symptomatic treatment such as NSAIDs, muscle relaxers, topical pain agents such as Voltaren gel and lidocaine patches. The patient asked me "so this means I can go home now" I advised her that yes she could. There was no evidence of pneumonia, collapsed lung, concerns with the great vessels in her chest, heart attack, blood clot. Her vital signs have improved her heart rate is in the 60s. Her blood pressure is 127 systolic. Her is at the bedside, he verbalized understanding and agreement with the plan of care. All questions are sought and answered. Patient is stable for discharge. Initial ECG Impression Date: August 21, 2021 Initial ECG Impression Time: 09:41 Initial ECG Rate: 84 Initial ECG Rhythm: Normal Sinus Initial ECG Intervals: Normal Initial ECG Impression: Normal Diagnostic Imaging Diagonstic Imaging: Xray Plain Films/CT/US/NM/MRI: chest Comments [facility]. [place], [place] NAME: JOSE ALBERTO VERA [facility] REC#: [id number] PT STATUS: REG ER : 1970 PHYSICIAN: ISADORA HOUSER MD ADMIT DATE: 08/21/21/ER Draft Date of Exam:08/21/21 CHEST 1 VIEW, AP/PA ONLY INDICATION: Chest pain. COMPARISON: 08/24/2018. EXAMINATION: Portable chest. FINDINGS: The lungs are well-aerated and clear. The heart is not enlarged. No evidence of pulmonary edema. No hilar adenopathy. No pneumothorax or pleural effusion. No bony abnormalities. IMPRESSION: Normal portable chest. No significant change since 08/24/2018. Dictated on workstation # [id number] Dict: 08/21/21 1031 Trans: 08/21/21 1035 [id number] Interpreted by: EDSON LEONARDO MD Electronically signed by: Departure Impression Primary Impression: Chest wall pain Disposition: HOME, SELF-CARE Condition: Improved Departure-Patient Inst. Decision time for Depature: 12:17 Referrals: SHANE ALLEN DO (PCP/Family) Primary Care Physician Patient Instructions: Costochondritis Add. Discharge Instructions: You can take wbvk-hme-bthbrjt ibuprofen, 3 pills which is 600 mg every 6 hours with food as needed for pain. Utqv-nkb-alkeici Voltaren gel may also help with your symptoms. Lidocaine patches, 4%, can be applied to the chest wall also for pain. Please follow packaging directions. Return to the emergency room if you have any worsening pain especially with fever, shortness of breath, vomiting or other emergent concerning symptoms. Please follow-up with your primary care physician for this pain within the next week. Copy Copies To 1: SHANE ALLEN KATHRYN M MD August 21, 2021 10:12
[2021-08-21 10:13] LABS: BASOPHILS # (AUTO) 0.1 10^3/uL (0.0-0.1); BASOPHILS % (AUTO) 1 % (0-10); EOSINOPHILS # (AUTO) 0.5 10^3/uL (0.0-0.3); EOSINOPHILS % (AUTO) 5 % (0-10); HEMATOCRIT 41 % (35-52); HEMOGLOBIN 13.7 g/dL (11.5-16.0); LYMPHOCYTES # (AUTO) 3.5 10^3/uL (1.0-4.0); LYMPHOCYTES % (AUTO) 36 % (12-44); MEAN CORPUSCULAR HEMOGLOBIN 30 pg (25-34); MEAN CORPUSCULAR HGB CONC 33 g/dL (32-36); MEAN CORPUSCULAR VOLUME 89 fL (80-99); MEAN PLATELET VOLUME 9.1 fL (9.0-12.2); MONOCYTES # (AUTO) 0.5 10^3/uL (0.0-1.0); MONOCYTES % (AUTO) 6 % (0-12); NEUTROPHILS # (AUTO) 5.1 10^3/uL (1.8-7.8); NEUTROPHILS % (AUTO) 52 % (42-75); PLATELET COUNT 387 10^3/uL (130-400); WHITE BLOOD COUNT 9.8 10^3/uL (4.3-11.0)
[2021-08-21] MEDS ORDERED: ONDANSETRON 4 MG/2 ML (SDV) Z0FRAN IVP ONE (10:15)
[2021-08-21] MEDS ORDERED: KETOROLAC 30 MG/ML VIAL IVP ONE (10:15)
[2021-08-21] MEDS ORDERED: ASPIRIN 81 MG CHEW (CHILDREN'S ASA) ONE (10:17)
[2021-08-21 10:25] LABS: BUN/CREATININE RATIO 15; CALCIUM 9.3 MG/DL (8.5-10.1); CARBON DIOXIDE 22 MMOL/L (21-32); CHLORIDE 103 MMOL/L (98-107); CREATININE SERUM 0.68 MG/DL (0.60-1.30); GFR ESTIMATED 107; GLUCOSE 105 MG/DL (70-105); POTASSIUM 4.1 MMOL/L (3.6-5.0); SODIUM 139 MMOL/L (135-145)
[2021-08-21 10:28] LABS: FIBRIN DEGRADATION PRODUCTS 0.3 UG/ML (0.00-0.49); PROTHROMBIN TIME PATIENT 13.7 SEC (12.2-14.7)
--- NOTE | 2021-08-21 10:36 | Diagnostic Imaging Report ---
INDICATION: Chest pain. COMPARISON: 08/24/2018. EXAMINATION: Portable chest. FINDINGS: The lungs are well-aerated and clear. The heart is not enlarged. No evidence of pulmonary edema. No hilar adenopathy. No pneumothorax or pleural effusion. No bony abnormalities. IMPRESSION: Normal portable chest. No significant change since 08/24/2018. Dictated by: Dictated on workstation # [id number]
[2021-08-21] MEDS ORDERED: ORPHENADRINE 60 MG/2 ML (NORFLEX) AMP (ED ONLY) IV ONE (11:15)
[2021-08-21 12:54] VITALS: BP 93/60
[2021-08-22] MEDS ORDERED: ASPIRIN 81 MG CHEW (CHILDREN'S ASA) PO SCH (09:00)
[2021-08-22] MEDS ORDERED: LIDOCAINE 4% (SALONPAS) PATCH TOP SCH (09:00)
== END 2021-08-21 12:54 | disposition home or self-care (01) ==
LOC: EDUNIT# 09:32 → ER 09:33
DX: R07.89 Other chest pain (principal); X50.0XXA Overexertion from strenuous movement or load, initial encounter
CPT/HCPCS: 36415; 71045; 80048; 84484; 85025; 85379; 85610; 85730; 93005

== ENCOUNTER → 2021-09-23 | Outpatient (CLI) | payer BC ==
--- NOTE | 2021-09-23 13:34 | Diagnostic Imaging Report ---
INDICATION: Bilateral breast lumps. COMPARISON: No prior study is available for comparison. TECHNIQUE: 2D and 3D bilateral diagnostic mammography was performed with CAD. FINDINGS: Scattered fibroglandular densities are identified bilaterally. BB markers were placed at the areas of palpable abnormality in the lower inner breast bilaterally as well as in the left axilla. No underlying mass is detected. No malignant-appearing microcalcifications are seen. The axillae are unremarkable. IMPRESSION: No mammographic features suspicious for malignancy are identified. Even so, directed sonographic interrogation of the bilateral breasts at the areas of palpable abnormality is recommended and will be performed today. ACR BI-RADS Category 0: Incomplete. (Needs additional imaging evaluation). Result letter will be mailed to the patient. Note: At least 10% of breast cancer is not imaged by mammography. Dictated by: Dictated on workstation # [id number]
--- NOTE | 2021-09-24 12:42 | Diagnostic Imaging Report ---
Indication: Bilateral breast lumps. Correlation is made with diagnostic mammogram earlier same day. Sonographic interrogation of the area of lump in the lower inner aspects of both breasts as well as the left axillary region. No sonographic abnormality is seen at any of these locations. No solid or cystic mass is detected. IMPRESSION: BI-RADS Category 1 No sonographic abnormality is identified. Continued close clinical and self breast exams recommended to confirm stability of the areas of palpable abnormality. ACR BI-RADS Category 1: Negative. Dictated by: Dictated on workstation # [id number]
== END ==
LOC: RAD 12:45
PROVIDERS: ATTEND Family Medicine
DX: N63.10 Unspecified lump in the right breast, unspecified quadrant (principal); N63.20 Unspecified lump in the left breast, unspecified quadrant
CPT/HCPCS: 76642; 77066; G0279; 77062

== ENCOUNTER 2022-12-13 20:04 | Emergency (ER) | payer BC ==
[~2022-12-13] VITALS: Ht 167.7 cm; Wt 96.1 kg
[~2022-12-13 20:04] MED LIST changes: +ALBU8.5H6 IH; -RT-ALBUINH IH
[2022-12-13 20:23] VITALS: BP 148/81
--- NOTE | 2022-12-13 20:39 | ED Lower Extremity ---
General Chief Complaint: Lower Extremity Stated Complaint: SWOLLEN LEGS Source: patient Exam Limitations: no limitations (MAU DIAZ) History of Present Illness Date Seen by Provider: Dec 13, 2022 Time Seen by Provider: 20:35 Initial Comments Patient is a 52-year-old female who presents with bilateral leg swelling for the past week. She states she took all summer off. Started working about 3 weeks ago.*Developing this leg swelling as she has been standing more at work. She states her legs feel like c-Met. She denies any redness or bruising. She does report some bilateral knee pain but does have a history of arthritis in her knees. She does take meloxicam. She denies any chest pain, shortness of breath, cough, abdominal pain, vomiting, diarrhea or difficulties urinating. No history of CHF or kidney disease. She denies taking any medication or elevating her legs or using compression socks (MAU DIAZ) Allergies and Home Medications Allergies Coded Allergies: morphine (Verified Allergy, Severe, HALLUCINATIONS/ITCHING, 03/31/19) PATIENT HAS RECEIVED LORTAB AND HYDROMORPHONE IN THE PAST Patient Home Medication List Home Medication List Reviewed: Yes (MAU DIAZ) Diclofenac Sod (Diclofenac Sodium ER) 100 Mg Tab, (Reported) Entered as Reported by: ASHLEY ARCHER on 10/25/202340 Famotidine (Famotidine) 40 Mg Tablet, 40 MG PO DAILY, (Reported) Entered as Reported by: ASHLEY ARCHER on 12/18/181942 Gabapentin (Gabapentin) 400 Mg Capsule, 400 MG PO HS, (Reported) Entered as Reported by: TAMARA MAIER on 03/24/19 143 Lamotrigine (Lamotrigine) 100 Mg Tablet, (Reported) Entered as Reported by: ASHLEY ARCHER on 10/25/202340 Spironolactone (Spironolactone) 25 Mg Tablet, (Reported) Entered as Reported by: ASHLEY ARCHER on 10/25/202340 Topiramate (Topiramate) 100 Mg Tablet, 100 MG PO DAILY, (Reported) Entered as Reported by: ASHLEY ARCHER on 12/18/181942 Review of Systems Constitutional: No chills, No diaphoresis EENTM: No hearing loss, No ear pain, No blurred vision, No double vision Respiratory: No cough, No dyspnea on exertion Cardiovascular: No chest pain Gastrointestinal: No abdominal pain, No diarrhea, No nausea, No vomiting Genitourinary: No decreased output, No discharge Musculoskeletal: No back pain, No joint pain; other (Bilateral leg swelling.) Skin: No change in color, No change in hair/nails (MAU DIAZ) Past Qqbkvok-Fjbjpm-Zsafxs Hx Immunizations Up To Date Tetanus Booster (TDap): Unknown First/Initial COVID19 Vaccinat: 2020 Second COVID19 Vaccination Glenn: 06/2021 Third COVID19 Vaccination Date: DEC 2020 (MAU DIAZ) Seasonal Allergies Seasonal Allergies: Yes (MAU DIAZ) Past Medical History Surgery/Hospitalization HX: MED. HX.- HYPOGLYCEMIA, SEIZURE, FIBROMYALGIA SURG. 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 Sexually Transmitted Disease: No HIV/AIDS: No Genitourinary: No Gastrointestinal: Yes (S/P CHOLECYSTECTOMY) Gastroesophageal Reflux, Esophagitis, Hiatal Hernia, Gall Bladder Disease Musculoskeletal: Yes (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;RIGHT LEG SURGERY CHILD FOR UNKNOWN REASON) Arthritis, Fibromyalgia Endocrine: Yes (hypoglycemia) HEENT: No (GLASSES) Loss of Vision: Denies Hearing Impairment: Denies Cancer: No Psychosocial: Yes Pseudo Seizures, Anxiety Integumentary: No Blood Disorders: No Adverse Reaction/Blood Tranf: No (HAS HAD BLOOD WITH NO REACTION) (MAU DIAZ) Family Medical History Alcoholism 19 FATHER Asthma G8 BROTHER Myocardial infarction (MATERNAL GRANDFATHER [place]) No Pertinent Family Hx (MAU DIAZ) Physical Exam Vital Signs Vital Signs - First Documented 12/13/22 20:23 Temp 35.3 Pulse 88 Resp 14 B/P (MAP) 148/81 (103) O2 Delivery Room Air (ZULAYGAVIN K DO) Vital Signs Capillary Refill : (MAU DIAZ) Height, Weight, BMI Height: 5'6.00" Weight: 210lbs. 0oz. [id number]; 31.00 BMI Method:Stated General Appearance: WD/WN, no apparent distress HEENT: PERRL/EOMI, normal ENT inspection, TMs normal, pharynx normal Neck: non-tender, full range of motion, supple Cardiovascular: regular rate, rhythm, no edema, no gallop, no JVD Respiratory: chest non-tender, lungs clear, normal breath sounds, no respiratory distress, no accessory muscle use Gastrointestinal: normal bowel sounds, non tender, soft, no organomegaly Back: normal inspection, no CVA tenderness Legs: bilateral leg swelling (+1 pitting edema bilateral lower extremities. No erythema, bruising or tenderness) Knees: left knee other (Mild tenderness to right medial joint line. Normal active range of motion. No pain with valgus or varus stress. Negative anterior posterior drawer test. 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 Symptoms over the past week. Recently started working again. She took most of the summer off. After reviewing previous visits in the past she has a history of lower leg swelling and has been evaluated here in the ED. She denies any traumas, recent travels or surgeries. Not currently on anticoagulants. On exam she has no pain evidence of bruising or redness suggesting a DVT or cellulitis. No known kidney disease. She denies chest pain or shortness of breath. Denies history of CHF or coronary artery disease. Clinically does not appear to be a DVT or cellulitis. Patient's lung sounds clear bilateral. Vital signs stable. Does not clinically appear to be secondary to CHF. She is urinating without any difficulties suggesting kidney disease. Did offer to check a chemistry but patient did not want to proceed. This appears to be more secondary to dependent edema secondary to increase workload over the past week such as standing for long period of time. She has not been taking medication or using any compression socks which I suggest using compression socks during the day as well as elevating her legs at night to help with the swelling. She has a scheduled appointment this upcoming week. Did review her last kidney function in November 07 which was unremarkable. If increasing pain, swelling or any chest pain or shortness of breath return back to ED. Follow-up your PCP for further evaluation. (MAU DIAZ) Impression Primary Impression: Bilateral leg edema Disposition: HOME, SELF-CARE Condition: Stable Departure-Patient Inst. Decision time for Depature: 20:38 (MAU DIAZ) Referrals: SHANE ALLEN DO (PCP/Family) Primary Care Physician Patient Instructions: Swelling Add. Discharge Instructions: Recommend compression socks while at work and take off at night, elevate feet. If increasing pain, redness, shortness of breath, cough, vomiting, change in urination to return back to ED All discharge instructions reviewed with patient and/or family. Voiced understanding. ATTENDING PHYSICIAN NOTE: I WAS PHYSICALLY PRESENT ER PHYSICIAN, BUT I WAS NOT INVOLVED IN ANY DECISION MAKING OR ANY CARE OF THIS PATIENT, AND I AM NOT COLLABORATING PHYSICIAN. (GAVIN BISWAS DO) MAU DIAZ Dec 13, 2022 20:39 GAVIN BISWAS DO Dec 14, 2022 06:45
== END 2022-12-13 20:48 | disposition home or self-care (01) ==
LOC: EDUNIT# 20:04 → ER 20:07
DX: R60.0 Localized edema (principal)
CPT/HCPCS: 99281